=== PATIENT | female | born 1955 | race Caucasian/White ===

== ENCOUNTER 2017-08-30 12:48 | Emergency (ER) | payer OTHER, MEDICAID, SELFPAY | END 2017-08-30 14:32 | disposition home or self-care (01) | PROVIDERS: Emergency Provider Emergency Medicine; Family Provider Family Medicine; PCP Family Medicine; Visit Provider Emergency Medicine | DX: M79.645 Pain in left finger(s) (principal) | CPT/HCPCS: 73130; 99283 ==

== ENCOUNTER 2017-09-22 09:02 | Emergency (ER) | payer OTHER, MEDICAID, SELFPAY ==
--- NOTE | 2017-09-22 09:08 | ED.FEMALEGU ---
HPI - Female Genitourinary General Chief complaint: Urogenital-Female Stated complaint: 'MY BACK, MY KIDNEYS, URINARY TRACT INFECTION' Time Seen by Provider: 09/22/17 09:06 Source: patient Mode of arrival: ambulatory Limitations: no limitations History of Present Illness HPI Narrative: 62-year-old female here for evaluation of urinary symptoms for the past 4 days. Patient states that on Thursday of last week she started having pain with urination. She states that she has had lower back pain for the past couple days. States that she has had some blood on my pad and is unsure whether not this is vaginal bleeding or from her urethra however she suspects it is from her urethra. She states she no longer has menstrual cycles. She states that she has had urinary tract infections in the past. No fevers. No nausea vomiting. Patient is on anticoagulation for a prosthetic heart valve. Related Data Home Medications Medication Instructions Recorded Confirmed aspirin 81 mg PO QDAY #0 04/24/17 cholecalciferol (vitamin D3) 1,000 unit PO QDAY #0 04/24/17 [Vitamin D3] loratadine [Claritin Liqui-Gel] 10 mg PO QDAY #0 04/24/17 warfarin [Coumadin] 3 mg PO WEFR 09/22/17 09/22/17 Previous Rx's Medication Instructions Recorded citalopram 40 mg PO QDAY #30 06/26/17 furosemide 80 mg PO QDAY #30 tab 06/26/17 gabapentin [Neurontin] 1,200 mg PO BID #180 cap 06/26/17 omeprazole 20 mg PO HS #30 cap 06/26/17 potassium chloride [Klor-Con M20] 20 meq PO AMCC #30 tab 06/26/17 simvastatin 40 mg PO HS #30 tab 06/26/17 warfarin 6 mg PO QDAY #34 tab 06/26/17 diclofenac sodium [Voltaren] 1 tyrone TOPICAL Q8H #100 gm 07/13/17 nicotine [Nicoderm CQ] 14 mg TD QAM #30 patch 07/13/17 levothyroxine [Synthroid] 50 mcg PO QAM #90 tab 07/16/17 diph,pertuss(acel),tet vac(PF) 0.5 ml IM X1 #1 dose 07/22/17 [Adacel(Tdap Adolesn/Adult)(PF)] Disabled Parking Permit ea #1 07/31/17 metronidazole [Metrogel Vaginal] 1 appl VAGINAL HS 5 Days #0 gm 08/12/17 alprazolam 1 mg PO HS #30 tab 08/27/17 oxycodone-acetaminophen 1 tab PO BID #60 tab 08/27/17 dbjzjhxlkz-mhvycmjbhprrr-nrxdfqln 1 tab PO SEE INSTRUCTIONS PRN #20 09/11/17 50 mg-325 mg-40 mg tablet tab buspirone 15 mg tablet 7.5 mg PO BID #60 tab 09/17/17 cephalexin 500 mg PO Q12H 7 Days #14 cap 09/22/17 ondansetron 4 mg PO Q6H PRN #10 tab 09/22/17 Allergies Allergy/AdvReac Type Severity Reaction Status Date / Time adhesive tape [ADHESIVE TAPE] Allergy Unknown RASH Unverified 08/19/17 12:49 clindamycin [CLINDAMYCIN] Allergy Unknown RASH Unverified 08/19/17 12:49 Penicillins [PENICILLINS] Allergy Unknown RASH Unverified 08/19/17 12:49 phytonadione (vitamin K1) Allergy Unknown RASH Unverified 08/19/17 12:49 [PHYTONADIONE (VITAMIN K1)] prochlorperazine Allergy Unknown AKATHISIA Unverified 08/19/17 12:49 [PROCHLORPERAZINE] morphine [MORPHINE] AdvReac Unknown NAUSEA Unverified 08/19/17 12:49 VOMITING Review of Systems Constitutional Denies chills, Denies fever(s), Denies lethargy and Denies weakness Cardiovascular Denies chest pain, Denies irregular heart rhythm, Denies lightheadedness, Denies palpitations, Denies dyspnea, Denies dyspnea on exertion and Denies orthopnea Respiratory Denies cough, Denies dyspnea, Denies dyspnea on exertion and Denies wheezing Gastrointestinal Comments: Lower abdominal pain Genitourinary Reports hematuria, Reports urinary frequency, Reports difficulty voiding, Reports post void dribbling, Denies genital lesions, Denies pelvic pain, Denies flank pain, Denies urinary incontinence, Reports urinary hesitancy and Reports urinary urgency Musculoskeletal Comments: bilateral lower back pain Integumentary/Breasts Denies pruritus, Denies erythema, Denies rash and Denies wounds Neurologic Denies weakness Endocrine Denies palpitations Hematologic/Lymphatic Comments: on anticoagulation Allergic/Immunologic Denies urticaria and Denies wheezing PMFSH Past Medical History Medical history: Reports asthma, CHF, fibromyalgia, GERD, TIA, valvular heart disease and other ( hypertension, depression) Surgical history: Reports heart valve replacement and hysterectomy Family history: Reports no significant family history Exam Const General: cooperative and well developed Nutritional Appearance: well nourished Orientation: alert, awake, oriented x3 and not confused Resp Effort & Inspection: normal respiratory effort, able to speak in complete sentences, no respiratory distress and no use of accessory muscles Auscultation: clear to auscultation bilaterally, no rales, no rhonchi and no wheezes Cardio Rate: regular rate Rhythm: regular rhythm Heart Sounds: no click, no gallops, no murmurs and no rubs Pulses: normal peripheral pulses GI Other: bilateral lower abdominal pain without rebound or guarding Back/Spine/Pelvis Other: bilateral CVA tender Skin General: no rashes or lesions noted, No jaundice and No petechiae Neuro General: alert, oriented x3, gait normal and no focal motor deficits Cranial Nerves: CN's II-XI intact bilaterally Speech: speech normal Motor: strength 5/5 throughout Sensory Exam: no sensory deficits noted Extrem General: full ROM, no clubbing, cyanosis or edema, no pedal edema and no calf tenderness MDM - Female Genitourinary MDM Narrative Medical decision making narrative: patient is afebrile. Nontoxic appearing. Has a benign abdominal exam. Of previous renal functions show normal GFR. Bedside bladder scanner shows a urine volume of 42 cc. Patient is having dysuria, hematuria, and lower back pain. No vomiting. Patient states that she feels like she cannot give us a urinalysis. I feel that secondary to her history and her physical exam and her symptoms that a urinary tract infection is most likely. With lower back pain this could represent an early pyelonephritis. Discussed all this with the patient. Will send home with antibiotics and Pyridium. Will also give a prescription for Zofran. She was given return precautions. She expressed understanding and agreement with plan Course Orders Ordered: ED Orders 09/22/17 09:21 Urinalysis and Microscopic Stat Urine Culture Stat Last Vital Signs Temp 98.5 F 09/22/17 09:50 Pulse 65 09/22/17 09:50 Resp 13 09/22/17 09:50 BP 158/66 H 09/22/17 09:50 Pulse Ox 98 09/22/17 09:50 Discharge Plan Departure Patient Disposition: Home, Self-Care Clinical Impression: Urinary tract infection Instructions: Bladder Infection (Alternative Therapy), DI for Urinary Tract Infection (UTI) Activity Restrictions/Additional Instructions: Take all of your medications as directed. Increase your fluid intake. Call your primary care provider for a follow up. Return to the ER for any new or worsening symptoms. Prescriptions: New cephalexin 500 mg capsule 500 mg PO Q12H 7 Days Qty: 14 RF: 0 ondansetron 4 mg tablet,disintegrating 4 mg PO Q6H PRN (Reason: nausea and vomiting) Qty: 10 RF: 0 No Action aspirin 81 MG tablet,chewable 81 mg PO QDAY Qty: 0 RF: 0 cholecalciferol (vitamin D3) [Vitamin D3] 1,000 UNIT tablet 1,000 unit PO QDAY Qty: 0 RF: 0 loratadine [Claritin Liqui-Gel] 10 MG capsule 10 mg PO QDAY Qty: 0 RF: 0 citalopram 40 MG tablet 40 mg PO QDAY Qty: 30 RF: 2 gabapentin [Neurontin] 400 MG capsule 1,200 mg PO BID Qty: 180 RF: 2 simvastatin 40 MG tablet 40 mg PO HS Qty: 30 RF: 2 warfarin 6 MG tablet 6 mg PO QDAY Qty: 34 RF: 2 potassium chloride [Klor-Con M20] 20 MEQ tablet,ER particles/crystals 20 meq PO AMCC Qty: 30 RF: 2 furosemide 80 MG tablet 80 mg PO QDAY Qty: 30 RF: 2 omeprazole 20 MG capsule,delayed release(DR/EC) 20 mg PO HS Qty: 30 RF: 2 diclofenac sodium [Voltaren] 1 % gel 1 tyrone Topical Q8H Qty: 100 RF: 2 nicotine [Nicoderm CQ] 14 MG patch 24 hour 14 mg TD QAM Qty: 30 RF: 2 levothyroxine [Synthroid] 50 MCG tablet 50 mcg PO QAM Qty: 90 RF: 0 diph,pertuss(acel),tet vac(PF) [Adacel(Tdap Adolesn/Adult)(PF)] 0.5 ML suspension 0.5 ml IM X1 Qty: 1 RF: 0 Disabled Parking Permit Qty: 1 RF: 0 metronidazole [Metrogel Vaginal] 0.75 % gel 1 appl Vaginal HS 5 Days Qty: 0 RF: 0 alprazolam 1 MG tablet 1 mg PO HS Qty: 30 RF: 0 oxycodone-acetaminophen 7.5 MG/325 MG tablet 1 tab PO BID Qty: 60 RF: 0 dmnsjqmsya-xcfpuechrhdls-eizm 50-325-40 mg tablet 1 tab PO SEE INSTRUCTIONS PRN (Reason: headaches) Qty: 20 RF: 0 buspirone 15 mg tablet 7.5 mg PO BID Qty: 60 RF: 0 warfarin [Coumadin] 3 MG tablet 3 mg PO WEFR RF: 0
[2017-09-22 09:16] VITALS: BP 158/66; PULSE 65; RESP 13; TEMP 36.9; O2SAT 98
[2017-09-22 09:50] VITALS: BP 158/66; PULSE 65; RESP 13; TEMP 36.9; O2SAT 98
[2017-09-22 10:17] VITALS: BP 160/90; PULSE 67; RESP 18; O2SAT 94
== END 2017-09-22 10:17 | disposition home or self-care (01) ==
PROVIDERS: Emergency Provider Emergency Medicine; Family Provider Family Medicine; PCP Family Medicine
DX: N39.0 Urinary tract infection, site not specified (principal)
CPT/HCPCS: 51798; 99283

== ENCOUNTER 2017-10-22 15:24 | Emergency (ER) | payer OTHER, MEDICAID, SELFPAY ==
[2017-10-22 15:28] VITALS: BP 100/57; PULSE 50; RESP 20; TEMP 36.2; O2SAT 99; BMI 26.4
[2017-10-22 16:23] LABS: RBC Urine 5-10/HPF (0-5/HPF); Squamous Epithelial Cell Urine 1-5 /HPF; WBC Urine 1-5/HPF (0-5/HPF)
[2017-10-22 16:24] LABS: Bacteria Urine Occasional (0-1)
[2017-10-22 16:47] LABS: Alanine Aminotransferase 37 IU/L (9-52); Albumin 4.1 g/dL (3.5-5.0); Albumin Globulin Ratio 1.2 (1.0-2.8); Alkaline Phosphatase 90 U/L (38-126); Aspartate Aminotransferase 35 IU/L (14-36); BUN Creatinine Ratio 23.8 (6-22); Bilirubin Total 0.6 mg/dL (0.2-1.3); Blood Urea Nitrogen 19 mg/dL (7-17); Calcium 8.8 mg/dL (8.4-10.2); Carbon Dioxide 25 mmol/L (22-32); Chloride 107 mmol/L (98-107); Creatine Kinase 107 U/L (30-135); Estimated Glomerular Filt Rate > 60.0 mL/min (>60); Globulin 3.4 g/dL (1.7-4.1); Glucose 81 mg/dL (80-110); HEMOLYSIS < 15 (0-50); Lipase 87 U/L (23-300); Potassium 4.7 mmol/L (3.4-5.1); Sodium 139 mmol/L (137-145); Total Protein 7.5 g/dL (6.3-8.2)
[2017-10-22 16:48] LABS: Add Manual Diff / Slide Review NO; Basophils Percent Auto 0.9 % (0-2); Eosinophils Percent Auto 0.4 % (2-4); Hematocrit 37.3 % (36-46); Hemoglobin 12.4 g/dL (12.0-16.0); Lymphocytes Percent Auto 20.2 % (25-40); Mean Corpuscular HGB Conc 33.2 % (30-36); Mean Corpuscular Volume 87.3 fL (80-100); Monocytes Percent Auto 7.8 % (3-14); Neutrophils Absolute Auto 5500 /uL (3000-5900); Neutrophils Percent Auto 70.7 % (50-75); Platelet Count 207 X10^3/uL (150-400); Red Blood Cell Count 4.28 X10^6/uL (4.0-5.2); Red Cell Distribution Width 14.1 % (11.6-14.8); White Blood Cell Count 7.8 X10^3/uL (4.5-11.0)
[2017-10-22 16:49] LABS: INR 2.2 (0.9-1.3); Prothrombin Time 23.4 SECONDS (10.1-12.7)
[2017-10-22 16:51] LABS: PTT Partial Thromboplastin Tim 46 SECONDS (26.4-36.2)
[2017-10-22 16:52] VITALS: BP 106/44; PULSE 42; O2SAT 97
[2017-10-22 17:03] LABS: CKMB % Relative Index 2.2 % (1.5-5.0)
[2017-10-22 17:08] LABS: Troponin I < 0.012 ng/mL (0.01-0.034)
[2017-10-22 17:11] VITALS: BP 113/58; PULSE 71; RESP 12; O2SAT 97
--- NOTE | 2017-10-22 17:12 | DI.CT.S_ITS ---
PROCEDURE: CT ABDOMEN PELVIS W CON INDICATIONS: RLQ and RUQ pain TECHNIQUE: After the administration of intravenous contrast, 5 mm thick sections acquired from the diaphragm to the symphysis. 5 mm coronal and sagittal reformats were acquired. For radiation dose reduction, the following was used: automated exposure control, adjustment of mA and/or kV according to patient size. COMPARISON: None. FINDINGS: Image quality: Excellent. ABDOMEN: Lung bases: Scattered scarring/atelectasis. Heart is enlarged. Solid organs: Liver is normal in size and enhancement. Gallbladder negative. Biliary system is non dilated. Pancreas enhances normally. Spleen is normal in size and enhancement. No adrenal nodules. Bilateral renal cortical scarring. No hydronephrosis.. Peritoneum and bowel: Bowel loops demonstrate normal wall thickness and caliber. No free fluid or air. The appendix appears normal. The rectum is decompressed otherwise unremarkable. Scattered colonic diverticula. No evidence of acute diverticulitis Nodes and vessels: No retroperitoneal or mesenteric adenopathy by size criteria. Aorta and inferior vena cava are normal in size. There are scattered atheromatous plaques Miscellaneous: No ventral hernias. PELVIS: Genitourinary: Bladder wall thickness is normal. Miscellaneous: No inguinal hernias or adenopathy. Bones: No suspicious bony lesions. No vertebral body compression fractures. IMPRESSION: Overall, no acute abnormality. Normal appendix. Unremarkable appearance of the gallbladder. Incidental colonic diverticulosis. Cardiomegaly. Dictated by: Aldo Dowd M.D. on 10/22/2017 at 18:02 Approved by: Aldo Dowd M.D. on 10/22/2017 at 18:06
[2017-10-22 18:04] VITALS: BP 122/81; PULSE 43; RESP 16; O2SAT 98
[2017-10-22] MEDS: ONDANSETRON 4 MG/2 ML INJ IV (18:05)
[2017-10-22] MEDS: HYDROMORPHONE 0.5 MG INJ IV (18:05)
--- NOTE | 2017-10-22 18:54 | ED_ITS ---
HPI - Recheck/Abnormal Lab/Rx General Chief Complaint: Recheck/Abnormal Lab/Rx Stated Complaint: INR LEVEL ELEVATED,DR SENT OVER Time Seen by Provider: 10/22/17 16:47 Source: patient Mode of arrival: ambulatory Limitations: no limitations History of Present Illness HPI narrative: Patient is a 62-year-old female presenting with all abdominal pain. She actually says she needs her INR recheck date with 7 a couple days ago. She is now also having right upper and right lower quadrant pain. An overall just feeling weak and lethargic. She says she chronically has this abdominal pain is been off and on for a number of years however it is worse today. She denies any fever nausea vomiting or diarrhea. Related Data Home Medications Medication Instructions Recorded Confirmed aspirin 81 mg PO QDAY #0 04/24/17 10/22/17 cholecalciferol (vitamin D3) 1,000 unit PO QDAY #0 04/24/17 10/22/17 [Vitamin D3] buspirone 7.5 - 15 mg PO BID 09/22/17 10/22/17 grlypyiikg-scmbrzybpkgly-ttuf 1 - 2 tab PO Q4H PRN 09/22/17 10/22/17 warfarin [Coumadin] 3 mg PO WEFR 09/22/17 10/22/17 Previous Rx's Medication Instructions Recorded furosemide 80 mg PO QDAY #30 tab 06/26/17 potassium chloride [Klor-Con M20] 20 meq PO AMCC #30 tab 06/26/17 warfarin 6 mg PO QDAY #34 tab 06/26/17 diclofenac sodium [Voltaren] 1 tyrone TOPICAL Q8H #100 gm 07/13/17 nicotine [Nicoderm CQ] 14 mg TD QAM #30 patch 07/13/17 levothyroxine [Synthroid] 50 mcg PO QAM #90 tab 07/16/17 ondansetron 4 mg PO Q6H PRN #10 tab 09/22/17 alprazolam 1 mg tablet 1 mg PO HS #30 tab 09/28/17 oxycodone-acetaminophen 7.5 mg-325 1 tab PO BID #60 tab 09/29/17 mg tablet citalopram 40 mg tablet 40 mg PO QDAY #30 10/21/17 gabapentin 400 mg capsule 1,200 mg PO BID #180 cap 10/21/17 omeprazole 20 mg capsule,delayed 20 mg PO HS #30 cap 10/21/17 release simvastatin 40 mg tablet 40 mg PO HS #30 tab 10/21/17 loratadine 10 mg tablet 10 mg PO DAILY #30 tab 10/22/17 Allergies Allergy/AdvReac Type Severity Reaction Status Date / Time adhesive tape [ADHESIVE TAPE] Allergy Unknown RASH Verified 10/21/17 14:18 clindamycin [CLINDAMYCIN] Allergy Unknown RASH Verified 10/21/17 14:18 Penicillins [PENICILLINS] Allergy Unknown RASH Verified 10/21/17 14:18 phytonadione (vitamin K1) Allergy Unknown RASH Verified 10/21/17 14:18 [PHYTONADIONE (VITAMIN K1)] prochlorperazine Allergy Unknown AKATHISIA Verified 10/21/17 14:18 [PROCHLORPERAZINE] morphine [MORPHINE] AdvReac Unknown NAUSEA Verified 10/21/17 14:18 VOMITING Review of Systems Review of Systems All systems reviewed & are unremarkable except as noted in HPI and below Constitutional Reports body ache(s), Reports fatigue, Denies fever(s), Denies frequent falls and Denies headache(s) ENT Ears, Nose, Mouth, and Throat: Denies headache(s) Cardiovascular Denies chest pain, Denies irregular heart rhythm, Denies lightheadedness, Denies palpitations, Denies dyspnea, Denies dyspnea on exertion and Denies orthopnea Respiratory Denies cough, Denies dyspnea, Denies dyspnea on exertion and Denies wheezing Gastrointestinal Gastrointestinal: Reports system reviewed and no additional complaints, except as docu Genitourinary Denies hematuria, Denies flank pain, Denies urinary incontinence and Denies urinary urgency Integumentary/Breasts Denies pruritus, Denies erythema, Denies rash and Denies wounds Neurologic Denies frequent falls and Denies headache(s) Endocrine Reports fatigue and Denies palpitations Allergic/Immunologic Denies wheezing PFSH Surgical History Status post hernia repair Status post hysterectomy Family History Brother Age: 56 RA (rheumatoid arthritis) COPD (chronic obstructive pulmonary disease) Mother Breast cancer Social History Smoking Status: Current some day smoker Exam Initial Vital Signs Initial Vital Signs: Vital Signs Temperature 97.1 F L 10/22/17 15:28 Pulse Rate 50 L 10/22/17 15:28 Respiratory Rate 20 10/22/17 15:28 Blood Pressure 100/57 L 10/22/17 15:28 Pulse Oximetry 99 10/22/17 15:28 Const General: cooperative and well developed Nutritional Appearance: well nourished Orientation: alert, awake, oriented x3 and not confused Chest Chest: normal inspection of the chest Resp Effort & Inspection: normal respiratory effort, able to speak in complete sentences, no respiratory distress and no use of accessory muscles Auscultation: clear to auscultation bilaterally, no rales, no rhonchi and no wheezes Cardio Rate: regular rate Rhythm: regular rhythm Heart Sounds: no click, no gallops, no murmurs and no rubs Pulses: normal peripheral pulses GI Palpation: soft, No guarding, tender (Right lower quadrant and right upper quadrant negative Patel sign no guarding no rebound) and No ascites General: No CVA tenderness Skin General: no rashes or lesions noted, No jaundice and No petechiae Neuro General: alert, oriented x3, gait normal and no focal motor deficits Speech: speech normal Course Orders Ordered: ED Orders 10/22/17 15:54 Urine Microscopic Stat 10/22/17 16:32 Complete Blood Count AUTO DIFF Stat Comprehensive Metabolic Panel Stat Lipase Stat Partial Thromboplastin Time Stat Prothrombin Time INR Stat Troponin with CK Cardiac Panel Stat EKG-12 Lead Stat 10/22/17 17:12 CT abdomen pelvis w con Stat Lactate (Lactic Acid) Stat Discontinued Medications Hydromorphone HCl (Dilaudid) 0.5 mg IV NOW ONE Stop: 10/22/17 18:05 Last Admin: 10/22/17 18:05 Dose: 0.5 mg Ondansetron HCl (Zofran) 4 mg IV NOW ONE Stop: 10/22/17 18:05 Last Admin: 10/22/17 18:05 Dose: 4 mg Vital Signs - 8 hr 10/22/17 15:28 10/22/17 16:52 10/22/17 17:11 Temperature 97.1 F L Pulse Rate 50 L 42 L 71 Respiratory Rate 20 12 Blood Pressure 100/57 L Blood Pressure [Left Arm] 106/44 L 113/58 L Pulse Oximetry 99 97 97 10/22/17 18:04 Temperature Pulse Rate 43 L Respiratory Rate 16 Blood Pressure Blood Pressure [Left Arm] 122/81 H Pulse Oximetry 98 MDM - Recheck/Abnormal Lab/Rx Lab Data Attestation: I reviewed the patient's lab results. Result diagrams: 10/22/17 16:32 10/22/17 16:32 Lab Results 10/22/17 10/22/17 10/22/17 Range/Units 15:54 16:32 16:32 WBC 7.8 (4.5-11.0) X10^3/uL RBC 4.28 (4.0-5.2) X10^6/uL Hgb 12.4 (12.0-16.0) g/dL Hct 37.3 (36-46) % MCV 87.3 (80-100) fL MCH 29.0 (26-34) PG MCHC 33.2 (30-36) % RDW 14.1 (11.6-14.8) % Plt Count 207 (150-400) X10^3/uL Neut % (Auto) 70.7 (50-75) % Lymph % (Auto) 20.2 L (25-40) % [place] % (Auto) 7.8 (3-14) % Eos % (Auto) 0.4 L (2-4) % Baso % (Auto) 0.9 (0-2) % Neut # (Auto) 5500 (4393-2758) /uL PT 23.4 H (10.1-12.7) SECONDS INR 2.2 H (0.9-1.3) APTT 46 H (26.4-36.2) SECONDS Sodium (137-145) mmol/L Potassium (3.4-5.1) mmol/L Chloride (98-107) mmol/L Carbon Dioxide (22-32) mmol/L BUN (7-17) mg/dL Creatinine (0.52-1.04) mg/dL Estimated GFR (>60) mL/min BUN/Creatinine Ratio (6-22) Glucose (80-110) mg/dL Calcium (8.4-10.2) mg/dL Total Bilirubin (0.2-1.3) mg/dL AST (14-36) IU/L ALT (9-52) IU/L Alkaline Phosphatase (38-126) U/L Total Creatine Kinase (30-135) U/L CK-MB (CK-2) (<2.37) ng/mL CK-MB (CK-2) Rel Index (1.5-5.0) % Troponin I (0.01-0.034) ng/mL Total Protein (6.3-8.2) g/dL Albumin (3.5-5.0) g/dL Globulin (1.7-4.1) g/dL Albumin/Globulin Ratio (1.0-2.8) Lipase (23-300) U/L Urine RBC 5-10/hpf H (0-5/HPF) Urine WBC 1-5/hpf (0-5/HPF) Ur Squamous Epith Cells 1-5 /hpf Urine Bacteria Occasional (0-1) (None) Ur Culture Indicated? Not Reportable Micro UA Comment Not Reportable 10/22/17 Range/Units 16:32 WBC (4.5-11.0) X10^3/uL RBC (4.0-5.2) X10^6/uL Hgb (12.0-16.0) g/dL Hct (36-46) % MCV (80-100) fL MCH (26-34) PG MCHC (30-36) % RDW (11.6-14.8) % Plt Count (150-400) X10^3/uL Neut % (Auto) (50-75) % Lymph % (Auto) (25-40) % [place] % (Auto) (3-14) % Eos % (Auto) (2-4) % Baso % (Auto) (0-2) % Neut # (Auto) (5647-9641) /uL PT (10.1-12.7) SECONDS INR (0.9-1.3) APTT (26.4-36.2) SECONDS Sodium 139 (137-145) mmol/L Potassium 4.7 (3.4-5.1) mmol/L Chloride 107 (98-107) mmol/L Carbon Dioxide 25 (22-32) mmol/L BUN 19 H (7-17) mg/dL Creatinine 0.80 (0.52-1.04) mg/dL Estimated GFR > 60.0 (>60) mL/min BUN/Creatinine Ratio 23.8 H (6-22) Glucose 81 (80-110) mg/dL Calcium 8.8 (8.4-10.2) mg/dL Total Bilirubin 0.6 (0.2-1.3) mg/dL AST 35 (14-36) IU/L ALT 37 (9-52) IU/L Alkaline Phosphatase 90 (38-126) U/L Total Creatine Kinase 107 (30-135) U/L CK-MB (CK-2) 2.40 H (<2.37) ng/mL CK-MB (CK-2) Rel Index 2.2 (1.5-5.0) % Troponin I < 0.012 (0.01-0.034) ng/mL Total Protein 7.5 (6.3-8.2) g/dL Albumin 4.1 (3.5-5.0) g/dL Globulin 3.4 (1.7-4.1) g/dL Albumin/Globulin Ratio 1.2 (1.0-2.8) Lipase 87 (23-300) U/L Urine RBC (0-5/HPF) Urine WBC (0-5/HPF) Ur Squamous Epith Cells Urine Bacteria (None) Ur Culture Indicated? Micro UA Comment Imaging Data CT scan - abdomen: Radiologist's impression: PROCEDURE: CT ABDOMEN PELVIS W CON INDICATIONS: RLQ and RUQ pain TECHNIQUE: After the administration of intravenous contrast, 5 mm thick sections acquired from the diaphragm to the symphysis. 5 mm coronal and sagittal reformats were acquired. For radiation dose reduction, the following was used: automated exposure control, adjustment of mA and/or kV according to patient size. COMPARISON: None. FINDINGS: Image quality: Excellent. ABDOMEN: Lung bases: Scattered scarring/atelectasis. Heart is enlarged. Solid organs: Liver is normal in size and enhancement. Gallbladder negative. Biliary system is non dilated. Pancreas enhances normally. Spleen is normal in size and enhancement. No adrenal nodules. Bilateral renal cortical scarring. No hydronephrosis.. Peritoneum and bowel: Bowel loops demonstrate normal wall thickness and caliber. No free fluid or air. The appendix appears normal. The rectum is decompressed otherwise unremarkable. Scattered colonic diverticula. No evidence of acute diverticulitis Nodes and vessels: No retroperitoneal or mesenteric adenopathy by size criteria. Aorta and inferior vena cava are normal in size. There are scattered atheromatous plaques Miscellaneous: No ventral hernias. PELVIS: Genitourinary: Bladder wall thickness is normal. Miscellaneous: No inguinal hernias or adenopathy. Bones: No suspicious bony lesions. No vertebral body compression fractures. IMPRESSION: Overall, no acute abnormality. Normal appendix. Unremarkable appearance of the gallbladder. Incidental colonic diverticulosis. Cardiomegaly. Dictated by: Aldo Dowd M.D. on 10/22/2017 at 18:02 ECG Data Attestation: I personally reviewed and interpreted this ECG as follows: Prior ECG tracings: available for review Interpretation: Sinus rhythm rate 39 bradycardic normal intervals, similar to previous MDM Narrative Medical decision making narrative: Patient states that her normal heart rate is in the 40s. This is not uncommon for her. She also has been having chronic ongoing abdominal pain which is to be worse today of. Her INR is much improved from previous an herbal other blood work is within normal limits. She appears nontoxic in no sign of infection. The patient feels better and able to go home after Dilaudid. Discharge Plan Departure Patient Disposition: Home, Self-Care Clinical Impression: Abdominal pain Discharge Date/Time: 10/22/17 18:55 Interventions: ED Discharge Assessment Last Done: 10/22/17 18:48 Instructions: Acute Abdominal Pain Activity Restrictions/Additional Instructions: *You have been diagnosed with abdominal pain *What to do: Blood work and CT today were at the you're baseline and CT scan was negative for any acute findings. *Continue to take medications as directed *Follow up with your primary care provider in 2-3 days *Return to ER if you should have any new, worsening or concerning symptoms Prescriptions: No Action citalopram 40 mg tablet 40 mg PO QDAY Qty: 30 RF: 2 gabapentin [Neurontin] 400 mg capsule 1,200 mg PO BID Qty: 180 RF: 2 omeprazole 20 mg capsule,delayed release(DR/EC) 20 mg PO HS Qty: 30 RF: 2 simvastatin 40 mg tablet 40 mg PO HS Qty: 30 RF: 2 aspirin 81 MG tablet,chewable 81 mg PO QDAY Qty: 0 RF: 0 cholecalciferol (vitamin D3) [Vitamin D3] 1,000 UNIT tablet 1,000 unit PO QDAY Qty: 0 RF: 0 warfarin 6 MG tablet 6 mg PO QDAY Qty: 34 RF: 2 potassium chloride [Klor-Con M20] 20 MEQ tablet,ER particles/crystals 20 meq PO AMCC Qty: 30 RF: 2 furosemide 80 MG tablet 80 mg PO QDAY Qty: 30 RF: 2 diclofenac sodium [Voltaren] 1 % gel 1 tyrone Topical Q8H Qty: 100 RF: 2 nicotine [Nicoderm CQ] 14 MG patch 24 hour 14 mg TD QAM Qty: 30 RF: 2 levothyroxine [Synthroid] 50 MCG tablet 50 mcg PO QAM Qty: 90 RF: 0 alprazolam 1 mg tablet 1 mg PO HS Qty: 30 RF: 0 oxycodone-acetaminophen 7.5-325 mg tablet 1 tab PO BID Qty: 60 RF: 0 loratadine 10 mg tablet 10 mg PO DAILY Qty: 30 RF: 3 ondansetron 4 mg tablet,disintegrating 4 mg PO Q6H PRN (Reason: nausea and vomiting) Qty: 10 RF: 0 warfarin [Coumadin] 3 MG tablet 3 mg PO WEFR RF: 0 eymgrlyfqj-qbkldkjwhtbgu-ywuu 50-325-40 mg tablet 1 - 2 tab PO Q4H PRN (Reason: headaches) RF: 0 buspirone 15 mg tablet 7.5 - 15 mg PO BID RF: 0 Referrals: Nancy Ba DO [Primary Care Provider] -
== END 2017-10-22 18:55 | disposition home or self-care (01) ==
PROVIDERS: Emergency Provider Emergency Medicine; Family Provider Family Medicine; PCP Family Medicine
DX: R10.9 Unspecified abdominal pain (principal)
CPT/HCPCS: 36591; 74177; 80053; 81003; 81015; 82550; 82553; 83690; 84484; 85025; 85610; 85730; 93005; 96374; 96375; 99283; 99285; J1170; J2405

== ENCOUNTER 2017-11-02 15:26 | Emergency (ER) | payer OTHER, MEDICAID, SELFPAY ==
[2017-11-02 15:31] VITALS: BP 131/89; PULSE 62; RESP 16; TEMP 36.9; O2SAT 99; BMI 28.3
--- NOTE | 2017-11-02 15:46 | PC.NURSE ---
emotional with tears, but cooperative with care.
--- NOTE | 2017-11-02 16:50 | PC.NURSE ---
Addendum entered by Dilia Garcia R.N. 11/02/17 16:53: Pt denies intent to harm self or others. Denies self harm today. Original Note: Pt states her family members will not speak with her. She has been having marital problems and her three people that she usually talks to, will not speak with her. She states I just need someone to talk to. She was arrested last week and was unable to pickler helper her levothyroxine and citalopram. She has been without these medications for a week. Provider notified.
[2017-11-02 16:57] LABS: Prothrombin Time 66.6 SECONDS (10.1-12.7)
[2017-11-02 16:59] LABS: INR 6.2 (0.9-1.3)
--- NOTE | 2017-11-02 17:21 | PC.NURSE ---
pt requesting medication for anxiety, notified, lights dimmed per pt request, informed of reason for wait, blanket and position of comfort provided
[2017-11-02 17:26] LABS: Thyroid Stimulating Hormone 2.93 uIU/mL (0.47-4.68)
--- NOTE | 2017-11-02 18:31 | ED_ITS ---
HPI - Anxiety <TALHA Albert - Last Filed: 11/02/17 22:10> General Chief Complaint: Anxiety Stated Complaint: WOULD LIKE TO TALK TO SOMEONE,ROUGH DAY Time Seen by Provider: 11/02/17 16:08 History of Present Illness HPI narrative: 62-year-old female here for complaint of feeling anxious and needing someone to talk to. She states that she has had a rough week where she was incarcerated and released and is having difficulties with her family. She states that she does not have a lot of people talk to at the current time frame due to recent events. She denies any suicidal or homicidal ideation. She does report that she has been recently established with a counselor. She has no physical complaints although she does state that she would like to have her TSH and her INR checked as she has had had some irregularities with her medication take over this past week. MD complaint: anxiety Related Data Home Medications Medication Instructions Recorded Confirmed aspirin 81 mg PO QDAY #0 04/24/17 11/02/17 buspirone 7.5 mg PO BID 09/22/17 11/02/17 semfmjjylb-tiloxjymawjxu-krnq 1 - 2 tab PO Q4H PRN 09/22/17 11/02/17 warfarin [Coumadin] 3 mg PO WEFR 09/22/17 11/02/17 Previous Rx's Medication Instructions Recorded diclofenac sodium [Voltaren] 1 tyrone TOPICAL Q8H #100 gm 07/13/17 nicotine [Nicoderm CQ] 14 mg TD QAM #30 patch 07/13/17 ondansetron 4 mg PO Q6H PRN #10 tab 09/22/17 loratadine 10 mg tablet 10 mg PO DAILY #30 tab 10/22/17 citalopram 40 mg tablet 40 mg PO QDAY #30 10/23/17 furosemide 80 mg PO QDAY #30 tab 10/23/17 gabapentin 400 mg capsule 1,200 mg PO BID #180 cap 10/23/17 levothyroxine [Synthroid] 50 mcg PO QAM #90 tab 10/23/17 omeprazole 20 mg capsule,delayed 20 mg PO HS #30 cap 10/23/17 release potassium chloride [Klor-Con M20] 20 meq PO AMCC #30 tab 10/23/17 simvastatin 40 mg tablet 40 mg PO HS #30 tab 10/23/17 alprazolam 1 mg tablet 1 mg PO HS #30 tab 10/28/17 oxycodone-acetaminophen 7.5 mg-325 1 tab PO BID #60 tab 10/28/17 mg tablet warfarin 6 mg PO QDAY #34 tab 10/28/17 albuterol sulfate HFA 90 2 puff INHALATION QID PRN #8.5 gram 11/02/17 mcg/actuation aerosol inhaler Allergies Allergy/AdvReac Type Severity Reaction Status Date / Time adhesive tape [ADHESIVE TAPE] Allergy Unknown RASH Verified 11/03/17 17:11 clindamycin [CLINDAMYCIN] Allergy Unknown RASH Verified 11/03/17 17:11 Penicillins [PENICILLINS] Allergy Unknown RASH Verified 11/03/17 17:11 phytonadione (vitamin K1) Allergy Unknown RASH Verified 11/03/17 17:11 [PHYTONADIONE (VITAMIN K1)] prochlorperazine Allergy Unknown AKATHISIA Verified 11/03/17 17:11 [PROCHLORPERAZINE] morphine [MORPHINE] AdvReac Unknown NAUSEA Verified 11/03/17 17:11 VOMITING Review of Systems <TALHA Albert - Last Filed: 11/02/17 22:10> Constitutional Denies chills, Denies fever(s), Denies lethargy and Denies weakness Eyes Denies change in vision, Denies eye discharge, Denies irritation and Denies loss of vision ENT Ears, Nose, Mouth, and Throat: Denies change in voice, Denies neck pain and Denies sore throat Cardiovascular Denies chest pain, Denies irregular heart rhythm, Denies lightheadedness, Denies palpitations, Denies dyspnea, Denies dyspnea on exertion and Denies orthopnea Respiratory Denies cough, Denies dyspnea, Denies dyspnea on exertion and Denies wheezing Gastrointestinal Gastrointestinal: Denies abdominal pain, Denies change in bowel habits, Denies diarrhea, Denies nausea and Denies vomiting Genitourinary Denies hematuria, Denies flank pain, Denies urinary incontinence and Denies urinary urgency Musculoskeletal Denies neck pain Integumentary/Breasts Denies pruritus, Denies erythema, Denies rash and Denies wounds Neurologic Denies loss of vision and Denies weakness Psychiatric Reports anxiety Endocrine Denies palpitations Hematologic/Lymphatic Denies easy bruising Allergic/Immunologic Denies wheezing Exam <TALHA Albert Last Filed: 11/02/17 22:10> Initial Vital Signs Initial Vital Signs: Vital Signs Temperature 98.4 F 11/02/17 15:31 Pulse Rate 62 11/02/17 15:31 Respiratory Rate 16 11/02/17 15:31 Blood Pressure 131/89 H 11/02/17 15:31 Pulse Oximetry 99 11/02/17 15:31 Const General: cooperative and well developed Nutritional Appearance: well nourished Orientation: alert, awake, oriented x3 and not confused HENNY Mouth: oral mucosae normal and moist mucous membranes Eyes Conjunctivae: conjunctivae normal Sclera: sclerae normal Pupils: PERRL EOM: EOM intact bilaterally Resp Effort & Inspection: normal respiratory effort, able to speak in complete sentences, no respiratory distress and no use of accessory muscles Auscultation: clear to auscultation bilaterally, no rales, no rhonchi and no wheezes Cardio Rate: regular rate Rhythm: regular rhythm Heart Sounds: no click, no gallops, no murmurs and no rubs Skin General: no rashes or lesions noted, No jaundice and No petechiae Psych Appearance: well kempt Speech and Movement: speech and movement normal and speech clear Mood: anxious mood Affect: sad Attitude: cooperative Thought Process: normal Thought Content: normal Judgment: judgment good <DO Alysha Thomas Last Filed: 11/04/17 20:28> Initial Vital Signs Initial Vital Signs: Vital Signs Temperature 98.4 F 11/02/17 15:31 Pulse Rate 62 11/02/17 15:31 Respiratory Rate 16 11/02/17 15:31 Blood Pressure 131/89 H 11/02/17 15:31 Pulse Oximetry 99 11/02/17 15:31 Course <TALHA Albert - Last Filed: 11/02/17 22:10> Orders Ordered: ED Orders 11/02/17 16:20 Prothrombin Time INR Stat Thyroid Stimulating Hormone Stat Vital Signs - 8 hr 11/02/17 15:31 11/02/17 18:34 Temperature 98.4 F Pulse Rate 62 68 Respiratory Rate 16 12 Blood Pressure 131/89 H Blood Pressure [Left Arm] 130/72 H Pulse Oximetry 99 98 <DO Alysha Thomas Filed: 06/27/18 20:28> Orders Ordered: ED Orders 11/02/17 16:20 Prothrombin Time INR Stat Thyroid Stimulating Hormone Stat Vital Signs - 8 hr 11/02/17 15:31 11/02/17 18:34 Temperature 98.4 F Pulse Rate 62 68 Respiratory Rate 16 12 Blood Pressure 131/89 H Blood Pressure [Left Arm] 130/72 H Pulse Oximetry 99 98 MDM - Anxiety <TALHA Albert - Last Filed: 11/02/17 22:10> Lab Data Lab Results 11/02/17 11/02/17 Range/Units 16:20 16:20 PT 66.6 H (10.1-12.7) SECONDS INR 6.2 H* (0.9-1.3) TSH 2.93 (0.47-4.68) uIU/mL MDM Narrative Medical decision making narrative: Patient has counselor established and no would recommend that she follow up with her counselor in the next few days for continued therapy. Take anxiety medications as already prescribed by primary care. INR was obtained and which resulted in 6.2 she has no complaint of pain or bleeding anywhere. She is instructed to not take her Coumadin for 2 days. She is instructed to follow up with her primary care provider in 2 days for re- evaluation of her INR. For any worsening symptoms such as abdominal pain headache vomiting with blood or dark stool she is encouraged to return to the emergency room. <Kris Ogden DO - Last Filed: 11/04/17 20:28> Lab Data Lab Results 11/02/17 11/02/17 Range/Units 16:20 16:20 PT 66.6 H (10.1-12.7) SECONDS INR 6.2 H* (0.9-1.3) TSH 2.93 (0.47-4.68) uIU/mL Discharge Plan Departure Patient Disposition: Home, Self-Care Clinical Impression: Anxiety, Elevated INR Discharge Date/Time: 11/02/17 18:38 Interventions: ED Discharge Assessment Last Done: 11/02/17 18:36 Instructions: DI for Anxiety -- Adult Activity Restrictions/Additional Instructions: Continue taking anxiety medications as prescribed. Follow up with your counselor in the next few days for further counseling. INR was elevated at 6.2 this evening. Do not taking Coumadin for 2 days follow up with her primary care provider 2 days from now to have INR redrawn. For any worsening symptoms such as vomiting with blood dark tarry stool headache or abdominal pain return to the emergency room. Prescriptions: No Action aspirin 81 MG tablet,chewable 81 mg PO QDAY Qty: 0 RF: 0 diclofenac sodium [Voltaren] 1 % gel 1 tyrone Topical Q8H Qty: 100 RF: 2 nicotine [Nicoderm CQ] 14 MG patch 24 hour 14 mg TD QAM Qty: 30 RF: 2 loratadine 10 mg tablet 10 mg PO DAILY Qty: 30 RF: 3 furosemide 80 mg tablet 80 mg PO QDAY Qty: 30 RF: 0 potassium chloride [Klor-Con M20] 20 mEq tablet,ER particles/crystals 20 meq PO AMCC Qty: 30 RF: 0 levothyroxine [Synthroid] 50 mcg tablet 50 mcg PO QAM Qty: 90 RF: 0 gabapentin [Neurontin] 400 mg capsule 1,200 mg PO BID Qty: 180 RF: 0 omeprazole 20 mg capsule,delayed release(DR/EC) 20 mg PO HS Qty: 30 RF: 0 simvastatin 40 mg tablet 40 mg PO HS Qty: 30 RF: 2 citalopram 40 mg tablet 40 mg PO QDAY Qty: 30 RF: 0 warfarin 6 mg tablet 6 mg PO QDAY Qty: 34 RF: 0 alprazolam 1 mg tablet 1 mg PO HS Qty: 30 RF: 0 oxycodone-acetaminophen 7.5-325 mg tablet 1 tab PO BID Qty: 60 RF: 0 albuterol sulfate [Ventolin HFA] 90 mcg/actuation HFA aerosol inhaler 2 puff INHALATION QID PRN (Reason: shortness of breath or wheezing) Qty: 8.5 RF: 1 ondansetron 4 mg tablet,disintegrating 4 mg PO Q6H PRN (Reason: nausea and vomiting) Qty: 10 RF: 0 warfarin [Coumadin] 3 MG tablet 3 mg PO WEFR RF: 0 qxmkzzujim-qdxveyjiffqck-gvnj 50-325-40 mg tablet 1 - 2 tab PO Q4H PRN (Reason: headaches) RF: 0 buspirone 15 mg tablet 7.5 mg PO BID RF: 0 Referrals: Mejia,Nancy, DO [Primary Care Provider] -
[2017-11-02 18:34] VITALS: BP 130/72; PULSE 68; RESP 12; O2SAT 98
== END 2017-11-02 18:38 | disposition home or self-care (01) ==
PROVIDERS: Emergency Provider Nurse Practitioner Family; Family Provider Family Medicine; PCP Family Medicine
DX: F41.9 Anxiety disorder, unspecified (principal); R79.1 Abnormal coagulation profile
CPT/HCPCS: 36415; 84443; 85610; 99282; 99283

== ENCOUNTER → 2017-11-26 12:31 | Outpatient (CLI) | payer OTHER, MEDICAID, SELFPAY ==
[2017-11-26 12:57] LABS: Prothrombin Time 97.1 SECONDS (10.1-12.7)
[2017-11-26 13:02] LABS: INR 8.5 (0.9-1.3)
== END ==
PROVIDERS: Family Provider Family Medicine; PCP Family Medicine; Visit Provider Family Medicine
DX: I48.2 Chronic atrial fibrillation (principal)
CPT/HCPCS: 85610

== ENCOUNTER 2017-11-27 13:49 | Emergency (ER) | payer OTHER, MEDICAID, SELFPAY ==
[2017-11-27 14:05] VITALS: BP 119/70; PULSE 65; RESP 18; TEMP 37.2; O2SAT 98; BMI 28.3
[2017-11-27 15:30] LABS: Add Manual Diff / Slide Review NO; Basophils Percent Auto 1.6 % (0-2); Eosinophils Percent Auto 0.9 % (2-4); Hematocrit 39.3 % (36-46); Hemoglobin 13.3 g/dL (12.0-16.0); Lymphocytes Percent Auto 28.3 % (25-40); Mean Corpuscular HGB Conc 33.8 % (30-36); Mean Corpuscular Volume 85.6 fL (80-100); Monocytes Percent Auto 11.2 % (3-14); Neutrophils Absolute Auto 4100 /uL (3000-5900); Platelet Count 187 X10^3/uL (150-400); Red Blood Cell Count 4.59 X10^6/uL (4.0-5.2); Red Cell Distribution Width 14.2 % (11.6-14.8)
[2017-11-27 15:38] LABS: INR 3.9 (0.9-1.3); Prothrombin Time 43.4 SECONDS (10.1-12.7)
[2017-11-27 15:40] LABS: PTT Partial Thromboplastin Tim 47 SECONDS (26.4-36.2)
[2017-11-27 15:43] LABS: Alanine Aminotransferase 32 IU/L (9-52); Albumin 4.6 g/dL (3.5-5.0); Albumin Globulin Ratio 1.4 (1.0-2.8); Alkaline Phosphatase 99 U/L (38-126); Aspartate Aminotransferase 38 IU/L (14-36); Bilirubin Total 0.5 mg/dL (0.2-1.3); Blood Urea Nitrogen 20 mg/dL (7-17); Calcium 9.3 mg/dL (8.4-10.2); Carbon Dioxide 29 mmol/L (22-32); Chloride 104 mmol/L (98-107); Estimated Glomerular Filt Rate > 60.0 mL/min (>60); Globulin 3.3 g/dL (1.7-4.1); Glucose 90 mg/dL (80-110); HEMOLYSIS < 15 (0-50); Potassium 4.4 mmol/L (3.4-5.1); Sodium 141 mmol/L (137-145); Total Protein 7.9 g/dL (6.3-8.2)
--- NOTE | 2017-11-27 18:38 | ED.EXTPRO ---
HPI - Extremity Problem General Chief complaint: Extremity Problem,Nontraumatic Stated complaint: LEG CRAMPS, INR IS 8.5 Time Seen by Provider: 11/27/17 18:15 Source: patient and family Mode of arrival: ambulatory Limitations: no limitations History of Present Illness HPI Narrative: Patient presents to the emergency department with a chief complaint of bilateral lower extremity discomfort and an outpatient INR that measured 8.5. She was encouraged to come by her doctor's office it. She denies any headache or blurred vision. She denies any numbness, tingling or weakness. She denies any chest pain or shortness of breath. She denies any bleeding gums, bloody nose or blood in stool. Patient states that it is her bilateral ?howe bones ?that hurt. MD Complaint: extremity pain Onset (ago): day(s) Pain Consistency: constant Quality: aching Radiation: none Relieving factors: rest Exacerbating factors: walking and exertion Associated symptoms: denies other symptoms Related Data Home Medications Medication Instructions Recorded Confirmed aspirin 81 mg PO QDAY #0 04/24/17 11/02/17 warfarin [Coumadin] 3 mg PO WEFR 09/22/17 11/02/17 Previous Rx's Medication Instructions Recorded diclofenac sodium [Voltaren] 1 tyrone TOPICAL Q8H #100 gm 07/13/17 nicotine [Nicoderm CQ] 14 mg TD QAM #30 patch 07/13/17 ondansetron 4 mg PO Q6H PRN #10 tab 09/22/17 loratadine 10 mg tablet 10 mg PO DAILY #30 tab 10/22/17 citalopram 40 mg tablet 40 mg PO QDAY #30 10/23/17 furosemide 80 mg PO QDAY #30 tab 10/23/17 gabapentin 400 mg capsule 1,200 mg PO BID #180 cap 10/23/17 levothyroxine [Synthroid] 50 mcg PO QAM #90 tab 10/23/17 omeprazole 20 mg capsule,delayed 20 mg PO HS #30 cap 10/23/17 release simvastatin 40 mg tablet 40 mg PO HS #30 tab 10/23/17 warfarin 6 mg PO QDAY #34 tab 10/28/17 albuterol sulfate HFA 90 2 puff INHALATION QID PRN #8.5 gram 11/02/17 mcg/actuation aerosol inhaler buspirone 15 mg tablet 7.5 mg PO BID #14 tab 11/18/17 jalazjvtte-cuiilnpljydsc-lwjdtwve 1 - 2 tab PO Q4H PRN #20 tab 11/19/17 50 mg-325 mg-40 mg tablet alprazolam 1 mg tablet 1 mg PO HS #30 tab 11/25/17 oxycodone-acetaminophen 7.5 mg-325 1 tab PO BID #60 tab 11/25/17 mg tablet potassium chloride ER 20 mEq 20 meq PO AMCC #30 tab 11/26/17 tablet,extended release(part/cryst) Allergies Allergy/AdvReac Type Severity Reaction Status Date / Time adhesive tape [ADHESIVE TAPE] Allergy Unknown RASH Verified 11/03/17 17:11 clindamycin [CLINDAMYCIN] Allergy Unknown RASH Verified 11/03/17 17:11 Penicillins [PENICILLINS] Allergy Unknown RASH Verified 11/03/17 17:11 phytonadione (vitamin K1) Allergy Unknown RASH Verified 11/03/17 17:11 [PHYTONADIONE (VITAMIN K1)] prochlorperazine Allergy Unknown AKATHISIA Verified 11/03/17 17:11 [PROCHLORPERAZINE] morphine [MORPHINE] AdvReac Unknown NAUSEA Verified 11/03/17 17:11 VOMITING Review of Systems Review of Systems All systems reviewed & are unremarkable except as noted in HPI and below Constitutional Denies chills, Denies fever(s), Denies lethargy and Denies weakness Eyes Denies change in vision, Denies eye discharge, Denies irritation and Denies loss of vision ENT Ears, Nose, Mouth, and Throat: Denies change in voice, Denies neck pain and Denies sore throat Cardiovascular Denies chest pain, Denies irregular heart rhythm, Denies lightheadedness, Denies palpitations, Denies dyspnea, Denies dyspnea on exertion and Denies orthopnea Respiratory Denies cough, Denies dyspnea, Denies dyspnea on exertion and Denies wheezing Gastrointestinal Gastrointestinal: Denies abdominal pain, Denies change in bowel habits, Denies diarrhea, Denies nausea and Denies vomiting Genitourinary Denies hematuria, Denies flank pain, Denies urinary incontinence and Denies urinary urgency Musculoskeletal Reports muscle cramps and Denies neck pain Integumentary/Breasts Denies pruritus, Denies erythema, Denies rash and Denies wounds Neurologic Denies confusion, Denies loss of vision and Denies weakness Psychiatric Denies anxiety, Denies confusion, Denies depression, Denies homicidal ideation and Denies suicidal ideation Endocrine Denies palpitations Hematologic/Lymphatic Denies easy bruising Allergic/Immunologic Denies wheezing PFSH Medical History Anxiety (Chronic Unknown) Arthritis (Chronic Unknown) Asthma (Chronic Unknown) Atrial fibrillation (Chronic Unknown) COPD (chronic obstructive pulmonary disease) (Chronic Unknown) Chronic back pain (Chronic Unknown) Coronary artery disease (Chronic Unknown) Depression (Chronic Unknown) Fibromyalgia (Chronic Unknown) GERD (gastroesophageal reflux disease) (Chronic Unknown) Generalized headaches (Chronic Unknown) Hearing loss (Chronic Unknown) Hx of coagulation disorder (Chronic 1999) Hypertension (Chronic Unknown) Hypothyroidism (Chronic Unknown) IBS (irritable bowel syndrome) (Chronic Unknown) Migraines (Chronic Unknown) Neuropathy (Chronic Unknown) PTSD (post-traumatic stress disorder) (Chronic Unknown) Pulmonary hypertension (Chronic Unknown) Restless leg syndrome (Chronic Unknown) Rheumatoid arthritis (Chronic Unknown) Sleep apnea (Chronic Unknown) Vertigo (Chronic Unknown) Abnormal chest x-ray (Resolved Unknown) Ankle pain (Resolved Unknown) Chickenpox (Resolved Unknown) Endometriosis (Resolved Unknown) Fractures (Resolved Unknown) Hematuria (Resolved Unknown) Hx of myocardial infarction (Resolved 1998) Hx of renal failure (Resolved Unknown) MRSA (methicillin resistant Staphylococcus aureus) (Resolved Unknown) Measles (Resolved Unknown) Mumps (Resolved Unknown) Pancreatitis (Resolved Unknown) Rheumatic fever (Resolved Unknown) Shoulder pain (Resolved Unknown) TIA (transient ischemic attack) (Resolved Unknown) Surgical History History of lung surgery (Resolved Unknown) History of mitral valve prosthesis (Resolved 1998) Status post hernia repair Status post hysterectomy Family History Brother Age: 56 RA (rheumatoid arthritis) COPD (chronic obstructive pulmonary disease) Mother Breast cancer Father No problems noted. Sister Cancer Social History Smoking Status: Current every day smoker Exam Initial Vital Signs Initial Vital Signs: Vital Signs Temperature 99.0 F 11/27/17 14:05 Pulse Rate 65 11/27/17 14:05 Respiratory Rate 18 11/27/17 14:05 Blood Pressure 119/70 11/27/17 14:05 Pulse Oximetry 98 11/27/17 14:05 Course Orders Ordered: ED Orders 11/27/17 15:23 CBC [Complete Blood Count AUTO DIFF] Stat Comprehensive Metabolic Panel Stat Partial Thromboplastin Time Stat Prothrombin Time INR Stat Vital Signs - 8 hr 11/27/17 14:05 Temperature 99.0 F Pulse Rate 65 Respiratory Rate 18 Blood Pressure 119/70 Pulse Oximetry 98 MDM - Extremity (Nontraumatic) Lab Data Result diagrams: 11/27/17 15:23 11/27/17 15:23 Lab Results 11/27/17 11/27/17 11/27/17 Range/Units 15:23 15:23 15:23 WBC 7.0 (4.5-11.0) X10^3/uL RBC 4.59 (4.0-5.2) X10^6/uL Hgb 13.3 (12.0-16.0) g/dL Hct 39.3 (36-46) % MCV 85.6 (80-100) fL MCH 29.0 (26-34) PG MCHC 33.8 (30-36) % RDW 14.2 (11.6-14.8) % Plt Count 187 (150-400) X10^3/uL Neut % (Auto) 58.0 (50-75) % Lymph % (Auto) 28.3 (25-40) % [place] % (Auto) 11.2 (3-14) % Eos % (Auto) 0.9 L (2-4) % Baso % (Auto) 1.6 (0-2) % Neut # (Auto) 4100 (6147-0848) /uL PT 43.4 H D (10.1-12.7) SECONDS INR 3.9 H (0.9-1.3) APTT 47 H (26.4-36.2) SECONDS Sodium 141 (137-145) mmol/L Potassium 4.4 (3.4-5.1) mmol/L Chloride 104 (98-107) mmol/L Carbon Dioxide 29 (22-32) mmol/L BUN 20 H (7-17) mg/dL Creatinine 0.80 (0.52-1.04) mg/dL Estimated GFR > 60.0 (>60) mL/min BUN/Creatinine Ratio 25.0 H (6-22) Glucose 90 (80-110) mg/dL Calcium 9.3 (8.4-10.2) mg/dL Total Bilirubin 0.5 (0.2-1.3) mg/dL AST 38 H (14-36) IU/L ALT 32 (9-52) IU/L Alkaline Phosphatase 99 (38-126) U/L Total Protein 7.9 (6.3-8.2) g/dL Albumin 4.6 (3.5-5.0) g/dL Globulin 3.3 (1.7-4.1) g/dL Albumin/Globulin Ratio 1.4 (1.0-2.8) Imaging Data Xray Tib R: Radiologist's impression: PROCEDURE: XR TIBIA FUBULA RT 2V INDICATIONS: deep bone pain, no obvious injury TECHNIQUE: 2 views of the tibia and fibula were acquired. COMPARISON: [facility], , XR TIBIA FIBULA LT 2V, 11/27/2017, 18:32. FINDINGS: Bones: Corticated ossification distal to the lateral malleolus. No suspicious bony lesions. Soft tissues: No suspicious soft tissue calcifications or masses. IMPRESSION: Corticated calcification distal to lateral malleolus suspected to be chronic. Recommend correlation to point tenderness. Dictated by: Sharon Wilde M.D. on 11/27/2017 at 20:18 Approved by: Sharon Wilde M.D. on 11/27/2017 at 20:19 Xray Tib L: Radiologist's impression: PROCEDURE: XR TIBIA FIBULA RT 2V INDICATIONS: deep bone pain TECHNIQUE: 2 views of the tibia and fibula were acquired. COMPARISON: [facility], , XR TIBIA FIBULA RT 2V, 11/27/2017, 18:32. FINDINGS: Bones: There is a corticated ossification distal to the lateral malleolus. No suspicious bony lesions. Soft tissues: No suspicious soft tissue calcifications or masses. IMPRESSION: Corticated ossification distal to the lateral malleolus suspected to be chronic. Recommend correlation of point tenderness. Dictated by: Sharon Wilde M.D. on 11/27/2017 at 20:17 Approved by: Sharon Wilde M.D. on 11/27/2017 at 20:18 Discharge Plan Departure Patient Disposition: Home, Self-Care Clinical Impression: Bilateral leg pain Discharge Date/Time: 11/27/17 20:14 Interventions: ED Discharge Assessment Last Done: 11/27/17 20:13 Instructions: DI for Leg Pain Activity Restrictions/Additional Instructions: *You have been diagnosed with [bilateral leg pain, supratherapeutic INR ] *What to do: *Take medications as directed such as Tylenol or Motrin for pain *Follow up with your primary care provider in 2-3 days, call for an appointment. Let them know you were seen in the Emergency Department and that we ask that you be seen in follow up *Return to ER if you should have any new, worsening or concerning symptoms, such as [ increasing pain, redness, swelling, fever over 101 F, or other symptoms] Prescriptions: No Action aspirin 81 MG tablet,chewable 81 mg PO QDAY Qty: 0 RF: 0 diclofenac sodium [Voltaren] 1 % gel 1 tyrone Topical Q8H Qty: 100 RF: 2 nicotine [Nicoderm CQ] 14 MG patch 24 hour 14 mg TD QAM Qty: 30 RF: 2 loratadine 10 mg tablet 10 mg PO DAILY Qty: 30 RF: 3 furosemide 80 mg tablet 80 mg PO QDAY Qty: 30 RF: 0 levothyroxine [Synthroid] 50 mcg tablet 50 mcg PO QAM Qty: 90 RF: 0 gabapentin [Neurontin] 400 mg capsule 1,200 mg PO BID Qty: 180 RF: 0 omeprazole 20 mg capsule,delayed release(DR/EC) 20 mg PO HS Qty: 30 RF: 0 simvastatin 40 mg tablet 40 mg PO HS Qty: 30 RF: 2 citalopram 40 mg tablet 40 mg PO QDAY Qty: 30 RF: 0 warfarin 6 mg tablet 6 mg PO QDAY Qty: 34 RF: 0 albuterol sulfate [Ventolin HFA] 90 mcg/actuation HFA aerosol inhaler 2 puff INHALATION QID PRN (Reason: shortness of breath or wheezing) Qty: 8.5 RF: 1 buspirone 15 mg tablet 7.5 mg PO BID Qty: 14 RF: 0 ljnonrinjj-cfewvsiirybwl-emxa 50-325-40 mg tablet 1 - 2 tab PO Q4H PRN (Reason: headaches) Qty: 20 RF: 0 alprazolam 1 mg tablet 1 mg PO HS Qty: 30 RF: 0 oxycodone-acetaminophen 7.5-325 mg tablet 1 tab PO BID Qty: 60 RF: 0 potassium chloride [Klor-Con M20] 20 mEq tablet,ER particles/crystals 20 meq PO AMCC Qty: 30 RF: 0 ondansetron 4 mg tablet,disintegrating 4 mg PO Q6H PRN (Reason: nausea and vomiting) Qty: 10 RF: 0 warfarin [Coumadin] 3 MG tablet 3 mg PO WEFR RF: 0 Referrals: Nancy Ba DO [Primary Care Provider] -
[2017-11-27 18:40] VITALS: BP 145/75; PULSE 51; RESP 14; O2SAT 99
--- NOTE | 2017-11-27 18:44 | DI.RAD.S_ITS ---
PROCEDURE: XR TIBIA FUBULA RT 2V INDICATIONS: deep bone pain, no obvious injury TECHNIQUE: 2 views of the tibia and fibula were acquired. COMPARISON: [facility], CR, XR TIBIA FIBULA LT 2V, 11/27/2017, 18:32. FINDINGS: Bones: Corticated ossification distal to the lateral malleolus. No suspicious bony lesions. Soft tissues: No suspicious soft tissue calcifications or masses. IMPRESSION: Corticated calcification distal to lateral malleolus suspected to be chronic. Recommend correlation to point tenderness. Dictated by: Sharon Wilde M.D. on 11/27/2017 at 20:18 Approved by: Sharon Wilde M.D. on 11/27/2017 at 20:19
--- NOTE | 2017-11-27 18:46 | DI.RAD.S_ITS ---
PROCEDURE: XR TIBIA FIBULA RT 2V INDICATIONS: deep bone pain TECHNIQUE: 2 views of the tibia and fibula were acquired. COMPARISON: [facility], CR, XR TIBIA FIBULA RT 2V, 11/27/2017, 18:32. FINDINGS: Bones: There is a corticated ossification distal to the lateral malleolus. No suspicious bony lesions. Soft tissues: No suspicious soft tissue calcifications or masses. IMPRESSION: Corticated ossification distal to the lateral malleolus suspected to be chronic. Recommend correlation of point tenderness. Dictated by: Sharon Wilde M.D. on 11/27/2017 at 20:17 Approved by: Sharon Wilde M.D. on 11/27/2017 at 20:18
[2017-11-27 19:35] VITALS: BP 147/80; PULSE 48; O2SAT 100
== END 2017-11-27 20:14 | disposition home or self-care (01) ==
PROVIDERS: Emergency Medicine; Emergency Provider Emergency Medicine; Family Provider Family Medicine; PCP Family Medicine
DX: M79.604 Pain in right leg (principal); M79.605 Pain in left leg
CPT/HCPCS: 73590; 80053; 85025; 85610; 85730; 99282; 99284

== ENCOUNTER 2017-12-04 22:37 | Emergency (ER) | payer OTHER, MEDICAID, SELFPAY ==
[2017-12-04 22:48] VITALS: BP 145/79; PULSE 62; RESP 14; TEMP 36.9; O2SAT 97; BMI 26.6
--- NOTE | 2017-12-04 22:52 | ED.CHESTPAIN ---
HPI - Chest Pain General Chief Complaint: Chest Pain Stated Complaint: Chest Pain Time Seen by Provider: 12/04/17 22:47 Source: patient and EMS Mode of arrival: EMS Limitations: no limitations History of Present Illness HPI narrative: Patient is a 62-year-old female who presents with chest pain. She has history of, atrial fibrillation and cardiac valve replacement. She says this pain is quite severe few feels like previous heart attack. It goes through to her back. She looks uncomfortable. She did receive nitro spray by EMS prior to arrival. She also has a history of anxiety. 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 She feels like she is getting pushed out. She has been quite stressed and upset about the situation. She does not feel like the situation has made the pain tonight. Sound as though she has had heart attack she says but no stent was ever placed. She said it was a number of years ago and she was in the hospital. MD complaint: chest pain Duration: constant Onset: during rest Pain location: left chest Severity: severe Quality: sharp Treatments prior to arrival chest pain: nitroglycerin Related Data Home Medications Medication Instructions Recorded Confirmed aspirin 81 mg PO QDAY #0 04/24/17 11/02/17 warfarin [Coumadin] 3 mg PO WEFR 09/22/17 11/02/17 Previous Rx's Medication Instructions Recorded diclofenac sodium [Voltaren] 1 tyrone TOPICAL Q8H #100 gm 07/13/17 ondansetron 4 mg PO Q6H PRN #10 tab 09/22/17 loratadine 10 mg tablet 10 mg PO DAILY #30 tab 10/22/17 citalopram 40 mg tablet 40 mg PO QDAY #30 10/23/17 furosemide 80 mg PO QDAY #30 tab 10/23/17 gabapentin 400 mg capsule 1,200 mg PO BID #180 cap 10/23/17 levothyroxine [Synthroid] 50 mcg PO QAM #90 tab 10/23/17 omeprazole 20 mg capsule,delayed 20 mg PO HS #30 cap 10/23/17 release simvastatin 40 mg tablet 40 mg PO HS #30 tab 10/23/17 warfarin 6 mg PO QDAY #34 tab 10/28/17 albuterol sulfate HFA 90 2 puff INHALATION QID PRN #8.5 gram 06/25/18 mcg/actuation aerosol inhaler yxfzfkujsb-ysyrttifmdjzn-iccwflqs 1 - 2 tab PO Q4H PRN #20 tab 11/19/17 50 mg-325 mg-40 mg tablet alprazolam 1 mg tablet 1 mg PO HS #30 tab 11/25/17 oxycodone-acetaminophen 7.5 mg-325 1 tab PO BID #60 tab 11/25/17 mg tablet potassium chloride ER 20 mEq 20 meq PO AMCC #30 tab 11/26/17 tablet,extended release(part/cryst) nicotine 14 mg/24 hr daily 14 mg TRANSDERMAL QAM #30 patch 12/01/17 transdermal patch buspirone 15 mg tablet 7.5 mg PO BID #30 tab 12/04/17 Allergies Allergy/AdvReac Type Severity Reaction Status Date / Time adhesive tape [ADHESIVE TAPE] Allergy Unknown RASH Verified 12/01/17 14:44 clindamycin [CLINDAMYCIN] Allergy Unknown RASH Verified 12/01/17 14:44 Penicillins [PENICILLINS] Allergy Unknown RASH Verified 12/01/17 14:44 phytonadione (vitamin K1) Allergy Unknown RASH Verified 12/01/17 14:44 [PHYTONADIONE (VITAMIN K1)] prochlorperazine Allergy Unknown AKATHISIA Verified 12/01/17 14:44 [PROCHLORPERAZINE] morphine [MORPHINE] AdvReac Unknown NAUSEA Verified 12/01/17 14:44 VOMITING Review of Systems Review of Systems GENERAL: Denies chills, fatigue, malaise, fever, sweats, travel HEENT: Denies sinus pain, ear pain, sore throat, difficulty swallowing, neck pain RESPIRATORY: Denies dyspnea, cough, wheezing, hemoptysis, sputum. CARDIOVASCULAR: See HPI GASTROINTESTINAL: Denies nausea, vomiting, abdominal pain, diarrhea, constipation, melena. : Denies dysuria, frequency, incontinence, hematuria, urinary retention, flank pain. MUSCULOSKELETAL: Denies weakness, joint pain, or bony pain SKIN: No rash, no erythema, no pruritus NEUROLOGIC: Denies weakness, dizziness, headache, numbness, change in speech, confusion PSYCHIATRIC: No concerning psychosocial issues. 12 point review of systems is negative except for those stated above and HPI [facility] Medical History Anxiety (Chronic Unknown) Arthritis (Chronic Unknown) Asthma (Chronic Unknown) Atrial fibrillation (Chronic Unknown) COPD (chronic obstructive pulmonary disease) (Chronic Unknown) Chronic back pain (Chronic Unknown) Coronary artery disease (Chronic Unknown) Depression (Chronic Unknown) Fibromyalgia (Chronic Unknown) GERD (gastroesophageal reflux disease) (Chronic Unknown) Generalized headaches (Chronic Unknown) Hearing loss (Chronic Unknown) Hx of coagulation disorder (Chronic 1999) Hypertension (Chronic Unknown) Hypothyroidism (Chronic Unknown) IBS (irritable bowel syndrome) (Chronic Unknown) Migraines (Chronic Unknown) Neuropathy (Chronic Unknown) PTSD (post-traumatic stress disorder) (Chronic Unknown) Pulmonary hypertension (Chronic Unknown) Restless leg syndrome (Chronic Unknown) Rheumatoid arthritis (Chronic Unknown) Sleep apnea (Chronic Unknown) Vertigo (Chronic Unknown) Abnormal chest x-ray (Resolved Unknown) Ankle pain (Resolved Unknown) Chickenpox (Resolved Unknown) Endometriosis (Resolved Unknown) Fractures (Resolved Unknown) Hematuria (Resolved Unknown) Hx of myocardial infarction (Resolved 1998) Hx of renal failure (Resolved Unknown) MRSA (methicillin resistant Staphylococcus aureus) (Resolved Unknown) Measles (Resolved Unknown) Mumps (Resolved Unknown) Pancreatitis (Resolved Unknown) Rheumatic fever (Resolved Unknown) Shoulder pain (Resolved Unknown) TIA (transient ischemic attack) (Resolved Unknown) Surgical History History of lung surgery (Resolved ) History of mitral valve prosthesis (Resolved 1998) Status post hernia repair Status post hysterectomy Family History Brother Age: 56 RA (rheumatoid arthritis) COPD (chronic obstructive pulmonary disease) Mother Breast cancer Father No problems noted. Sister Cancer Social History Smoking Status: Current every day smoker alcohol intake: never substance use type: marijuana (On occasion to help calm down. ) Exam Initial Vital Signs Initial Vital Signs: Vital Signs Temperature 98.4 F 12/04/17 22:48 Pulse Rate 62 12/04/17 22:48 Respiratory Rate 14 12/04/17 22:48 Blood Pressure 145/79 H 12/04/17 22:48 Pulse Oximetry 97 12/04/17 22:48 GENERAL: Appears in pain uncomfortable HEENT: Head atraumatic,EOMI, pupils reactive, face symmetric CARDIOVASCULAR: Regular rate and rhythm without murmurs, rubs or gallops. Pain is not reproducible with palpation RESPIRATORY: Breath sounds equal bilaterally, no wheezes rales or rhonchi. ABDOMEN: Soft, nontender. Normoactive bowel sounds all 4 quadrants. No guarding or rebound. EXTREMITIES: Normal range of motion, no clubbing or edema. Neurovascularly intact NEUROLOGICAL: Alert and oriented x4.Normal gait and speech. Cranial nerves II through XII grossly intact. [Good upzfrb-es-stjc, good zfbl-ys-rnsj, strength equal bilaterally, no dysarthria or aphasia, sensation in tact to soft touch bilaterally, no visual changes, no facial droop] SKIN: Warm, dry, no laceration, no petechiae, no rashes or lesions. Scores HEART Score Heart Score history: Slightly Suspicious Heart Score EKG: Non-Specific repolarization disturbance Heart Score Age: 45-64 years old Heart Score risk factors: 1-2 risk factors Heart Score troponin: < or = to normal limit Heart Score Total: 3 Course Orders Ordered: ED Orders 12/04/17 22:30 B Type Natriuretic Peptide Stat Complete Blood Count AUTO DIFF Stat Comprehensive Metabolic Panel Stat Lipase Stat Partial Thromboplastin Time Stat Prothrombin Time INR Stat Troponin & CK Cardiac Panel Stat 12/04/17 23:00 CT angio chest abdomen pelvis Stat EKG-12 Lead Stat 12/05/17 EKG-12 Lead Routine 12/05/17 01:37 Troponin I Stat Discontinued Medications Hydromorphone HCl (Dilaudid) 1 mg IV NOW ONE Stop: 12/04/17 23:01 Last Admin: 12/04/17 23:06 Dose: 1 mg Hydromorphone HCl (Dilaudid) 0.5 mg IV NOW ONE Stop: 12/05/17 02:49 Last Admin: 12/05/17 02:53 Dose: 0.5 mg Sodium Chloride (Normal Saline 0.9%) 1,000 mls @ 150 mls/hr IV CONT LUIS ANTONIO Last Infusion: 12/05/17 03:21 Dose: 0 mls/hr Admin: 12/04/17 23:05 Dose: 150 mls/hr Lorazepam (Ativan) 1 mg IV NOW ONE Stop: 12/04/17 23:57 Last Admin: 12/05/17 00:04 Dose: 1 mg Nitroglycerin (Nitrostat) 0.4 mg SL NOW ONE Stop: 12/05/17 02:21 Last Admin: 12/05/17 02:25 Dose: 0.4 mg Reevaluation(s) Reevaluation #2: 2nd troponin back and negative. Went to talk to patient. She appears comfortable stating that the pain is now starting to come back. She does have a head of ict Dr. Araceli willoughby all. She was actually supposed to go to [facility] with some like a loop recorder to monitor her heart rate. She is bradycardic at times but is asymptomatic Time: 02:21 Vital Signs - 8 hr 12/04/17 22:48 12/05/17 01:19 12/05/17 02:25 Temperature 98.4 F Pulse Rate 62 43 L 61 Respiratory Rate 14 16 Blood Pressure 145/79 H 139/86 H Blood Pressure [Right Arm] 111/68 Pulse Oximetry 97 97 12/05/17 02:32 12/05/17 03:30 Temperature Pulse Rate 54 L 66 Respiratory Rate 14 20 Blood Pressure 100/56 L 101/53 L Blood Pressure [Right Arm] 100/56 L Pulse Oximetry 99 98 MDM - Chest Pain Medical Records Data Attestation: I reviewed the patient's medical records. Lab Data Attestation: I reviewed the patient's lab results. Result diagrams: 12/04/17 22:30 12/04/17 22:30 Lab Results 12/04/17 12/04/17 12/04/17 Range/Units 22:30 22:30 22:30 WBC 8.1 (4.5-11.0) X10^3/uL RBC 4.60 (4.0-5.2) X10^6/uL Hgb 13.3 (12.0-16.0) g/dL Hct 39.8 (36-46) % MCV 86.5 (80-100) fL MCH 28.8 (26-34) PG MCHC 33.3 (30-36) % RDW 14.4 (11.6-14.8) % Plt Count 196 (150-400) X10^3/uL Neut % (Auto) 59.5 (50-75) % Lymph % (Auto) 28.7 (25-40) % [place] % (Auto) 9.2 (3-14) % Eos % (Auto) 1.2 L (2-4) % Baso % (Auto) 1.4 (0-2) % Neut # (Auto) 4800 (4456-6126) /uL PT 18.7 H D (10.1-12.7) SECONDS INR 1.7 H (0.9-1.3) APTT 34 D (26.4-36.2) SECONDS Sodium 144 (137-145) mmol/L Potassium 4.3 (3.4-5.1) mmol/L Chloride 109 H (98-107) mmol/L Carbon Dioxide 24 (22-32) mmol/L BUN 16 (7-17) mg/dL Creatinine 1.00 (0.52-1.04) mg/dL Estimated GFR 56.6 L (>60) mL/min BUN/Creatinine Ratio 16.0 (6-22) Glucose 85 (80-110) mg/dL Calcium 9.7 (8.4-10.2) mg/dL Total Bilirubin 0.4 (0.2-1.3) mg/dL AST 36 (14-36) IU/L ALT 25 (9-52) IU/L Alkaline Phosphatase 85 (38-126) U/L Total Creatine Kinase 152 H (30-135) U/L CK-MB (CK-2) 2.48 H (<2.37) ng/mL CK-MB (CK-2) Rel Index 1.6 (1.5-5.0) % Troponin I < 0.012 (0.01-0.034) ng/mL B-Natriuretic Peptide 117.0 H (<100) Total Protein 8.2 (6.3-8.2) g/dL Albumin 4.5 (3.5-5.0) g/dL Globulin 3.7 (1.7-4.1) g/dL Albumin/Globulin Ratio 1.2 (1.0-2.8) Lipase 116 (23-300) U/L 12/05/17 Range/Units 01:37 WBC (4.5-11.0) X10^3/uL RBC (4.0-5.2) X10^6/uL Hgb (12.0-16.0) g/dL Hct (36-46) % MCV (80-100) fL MCH (26-34) PG MCHC (30-36) % RDW (11.6-14.8) % Plt Count (150-400) X10^3/uL Neut % (Auto) (50-75) % Lymph % (Auto) (25-40) % [place] % (Auto) (3-14) % Eos % (Auto) (2-4) % Baso % (Auto) (0-2) % Neut # (Auto) (6765-8244) /uL PT (10.1-12.7) SECONDS INR (0.9-1.3) APTT (26.4-36.2) SECONDS Sodium (137-145) mmol/L Potassium (3.4-5.1) mmol/L Chloride (98-107) mmol/L Carbon Dioxide (22-32) mmol/L BUN (7-17) mg/dL Creatinine (0.52-1.04) mg/dL Estimated GFR (>60) mL/min BUN/Creatinine Ratio (6-22) Glucose (80-110) mg/dL Calcium (8.4-10.2) mg/dL Total Bilirubin (0.2-1.3) mg/dL AST (14-36) IU/L ALT (9-52) IU/L Alkaline Phosphatase (38-126) U/L Total Creatine Kinase (30-135) U/L CK-MB (CK-2) (<2.37) ng/mL CK-MB (CK-2) Rel Index (1.5-5.0) % Troponin I < 0.012 (0.01-0.034) ng/mL B-Natriuretic Peptide (<100) Total Protein (6.3-8.2) g/dL Albumin (3.5-5.0) g/dL Globulin (1.7-4.1) g/dL Albumin/Globulin Ratio (1.0-2.8) Lipase (23-300) U/L Imaging Data CT angio chest abdomen pelvis: Radiologist's impression: No ureteral dissection, aneurysm or periaortic fluid. No branch occlusion. Incidental finding of subtle lung herniation noted on the right anterior on image 46/5. Also small esophageal hiatal hernia distension of upper GI tract nonspecific. Moderate amount of intracolonic stool. No appendicitis or diverticulitis. ECG Data Attestation: I personally reviewed and interpreted this ECG as follows: Prior ECG tracings: available for review Interpretation: EKG 1.: Sinus rhythm rate [address] elevation in inferior leads with Q-waves is of appears to be benign early repolarization. This is seen on all previous EKG without any ST depression. No T-wave inversions cold normal EKG 2. Sinus rhythm rate 63 no changes, EKG 3. Sinus rhythm rate 47 no changes from previous EKGs MDM Narrative Medical decision making narrative: Patient has no known coronary artery disease. She does have head of ict for bradycardia. 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 She was seen earlier this week by her primary for an anxiety disorder. Even referred to Psychiatry. Apparently she was requesting more benzos. No prescriptions of benzos were given. She has 2-troponins 3 hr apart EKGs remained unchanged. No sign of dissection. pain Is recurrent pain in the ED which is unchanged by nitro. She is calm down by Dilaudid. We discussed at length the importance of following up with her head of ict. Also that she should return to the ER if it is getting any worse. CT did show of subtle small right-sided lung herniation. I do not believe this to be the cause of any of her problems. She points to the left side and says it radiates down to under her left breast. She has no specific ongoing right-sided chest pain. Discharge Plan Departure Patient Disposition: Home, Self-Care Clinical Impression: Atypical chest pain Discharge Date/Time: 12/05/17 03:32 Interventions: ED Discharge Assessment Last Done: 12/05/17 03:30 Instructions: DI for Atypical Chest Pain Activity Restrictions/Additional Instructions: *You have been diagnosed with atypical chest pain *What to do: Highly recommended that you get into her head of ict for further evaluation. *Continue to take medications as directed *Follow up with your primary care provider in 2-3 days, call Dr. Reinoso Thursday morning to schedule follow-up appointment *Return to ER if you should have worsening chest pain, shortness of breath, heart palpitations, a passing out or any new, worsening or concerning symptoms Prescriptions: No Action nicotine [Nicoderm CQ] 14 mg/24 hr patch 24 hour 14 mg Transdermal QAM Qty: 30 RF: 0 aspirin 81 MG tablet,chewable 81 mg PO QDAY Qty: 0 RF: 0 diclofenac sodium [Voltaren] 1 % gel 1 tyrone Topical Q8H Qty: 100 RF: 2 loratadine 10 mg tablet 10 mg PO DAILY Qty: 30 RF: 3 furosemide 80 mg tablet 80 mg PO QDAY Qty: 30 RF: 0 levothyroxine [Synthroid] 50 mcg tablet 50 mcg PO QAM Qty: 90 RF: 0 gabapentin [Neurontin] 400 mg capsule 1,200 mg PO BID Qty: 180 RF: 0 omeprazole 20 mg capsule,delayed release(DR/EC) 20 mg PO HS Qty: 30 RF: 0 simvastatin 40 mg tablet 40 mg PO HS Qty: 30 RF: 2 citalopram 40 mg tablet 40 mg PO QDAY Qty: 30 RF: 0 warfarin 6 mg tablet 6 mg PO QDAY Qty: 34 RF: 0 albuterol sulfate [Ventolin HFA] 90 mcg/actuation HFA aerosol inhaler 2 puff INHALATION QID PRN (Reason: shortness of breath or wheezing) Qty: 8.5 RF: 1 saewiizmga-hiozwmilfougu-osjz 50-325-40 mg tablet 1 - 2 tab PO Q4H PRN (Reason: headaches) Qty: 20 RF: 0 alprazolam 1 mg tablet 1 mg PO HS Qty: 30 RF: 0 oxycodone-acetaminophen 7.5-325 mg tablet 1 tab PO BID Qty: 60 RF: 0 potassium chloride [Klor-Con M20] 20 mEq tablet,ER particles/crystals 20 meq PO AMCC Qty: 30 RF: 0 buspirone 15 mg tablet 7.5 mg PO BID Qty: 30 RF: 0 ondansetron 4 mg tablet,disintegrating 4 mg PO Q6H PRN (Reason: nausea and vomiting) Qty: 10 RF: 0 warfarin [Coumadin] 3 MG tablet 3 mg PO WEFR RF: 0 Referrals: Bebo Reinoso MD [Physician] - Nancy Ba DO [Primary Care Provider] -
--- NOTE | 2017-12-04 22:58 | PC.NURSE ---
pt reports sudden onset of chest pain. hx of similar led to ME dx. hx of open heart surgery, mitral valve replacment. pt states she is having alot of stress latley due to difficulties with a neighbor. 3 rounds of nitro given in ambulance with no relief. placed on 2l o2.
--- NOTE | 2017-12-04 23:00 | DI.CT.S_ITS ---
PROCEDURE: CT ANGIO CHEST ABDOMEN PELVIS INDICATIONS: severe chest pain TECHNIQUE: Precontrast 5 mm thick sections acquired from the lung apices to the iliac crests. After the administration of intravenous contrast, 2.5 mm thick sections again acquired from the lung apices to the iliac crests. Maximum intensity projection (MIP) oblique sagittal and coronal reformats were then acquired. For radiation dose reduction, the following was used: automated exposure control. COMPARISON: [facility], CT, CT ABDOMEN PELVIS W CON, 10/22/2017, 17:20. FINDINGS: Image quality: Excellent. AORTA: The aorta demonstrates normal course and caliber throughout. Atheromatous calcification is present predominately within the infrarenal aorta. No aneurysmal dilatation. No dissection. No mural hematomas or thrombus. No aortic wall thickening. No periaortic fat stranding or free fluid. CHEST: Lungs and pleura: No acute airspace opacities. No pleural effusions or pneumothorax. Central and peripheral airways are patent and normal in caliber. Mediastinum: Heart size is normal. No pericardial effusion. No mediastinal or hilar adenopathy by size criteria. Central pulmonary arteries are normal in size. Esophagus is normal in caliber. No hiatal hernias. Bones and chest wall: Probable postsurgical changes noted at the right sternal costal margin where there is a small herniated focus of lung within the anterior chest wall (series 6, image 45). No axillary adenopathy by size criteria. Thyroid gland is unremarkable. No suspicious bony lesions. No vertebral body compression fractures. ABDOMEN: Vasculature: Celiac trunk and mesenteric arteries are patent. Renal arteries are also patent. Solid organs: Liver is normal in size and enhancement. Gallbladder is unremarkable. Biliary system is non dilated. Pancreas enhances normally. Spleen is normal in size and enhancement. No adrenal nodules. Both kidneys are normal in size and enhancement, without hydronephrosis. Peritoneum and bowel: No free fluid or air. Bowel loops are normal in caliber and wall thickness. The appendiceal stump is thin walled. Nodes and vessels: No retroperitoneal or mesenteric adenopathy by size criteria. Inferior vena cava is normal in morphology. Miscellaneous: No ventral hernias. PELVIS: Genitourinary: Bladder wall thickness is normal. Miscellaneous: No inguinal hernias or adenopathy. No ventral hernias. Bones: No suspicious bony lesions. No vertebral body compression fractures. IMPRESSION: 1. Mild aortic atheromatous calcification. No aneurysmal dilatation, stenosis, dissection, or mural thrombus. 2. Small pulmonary herniation at the anterior right lung as described above. It is unclear whether this may be the etiology of the patient's severe chest pain. Please correlate clinically with location. These findings are concordant with the overnight interpretation. Dictated by: Diandra Chanel M.D. on 12/05/2017 at 7:47 Approved by: Diandra Chanel M.D. on 12/05/2017 at 7:54
[2017-12-04] MEDS: SODIUM CHLORIDE 0.9% 1,000 ML 150 ML IV (23:05)
[2017-12-04] MEDS: HYDROMORPHONE 1 MG INJ IV (23:06)
[2017-12-04 23:09] LABS: Add Manual Diff / Slide Review NO; Basophils Percent Auto 1.4 % (0-2); Eosinophils Percent Auto 1.2 % (2-4); Hematocrit 39.8 % (36-46); Hemoglobin 13.3 g/dL (12.0-16.0); INR 1.7 (0.9-1.3); Lymphocytes Percent Auto 28.7 % (25-40); Mean Corpuscular HGB Conc 33.3 % (30-36); Mean Corpuscular Hemoglobin 28.8 PG (26-34); Mean Corpuscular Volume 86.5 fL (80-100); Monocytes Percent Auto 9.2 % (3-14); Neutrophils Absolute Auto 4800 /uL (3000-5900); Neutrophils Percent Auto 59.5 % (50-75); Platelet Count 196 X10^3/uL (150-400); Prothrombin Time 18.7 SECONDS (10.1-12.7); Red Cell Distribution Width 14.4 % (11.6-14.8); White Blood Cell Count 8.1 X10^3/uL (4.5-11.0)
[2017-12-04 23:11] LABS: PTT Partial Thromboplastin Tim 34 SECONDS (26.4-36.2)
[2017-12-04 23:13] LABS: Alanine Aminotransferase 25 IU/L (9-52); Albumin 4.5 g/dL (3.5-5.0); Albumin Globulin Ratio 1.2 (1.0-2.8); Alkaline Phosphatase 85 U/L (38-126); Aspartate Aminotransferase 36 IU/L (14-36); Bilirubin Total 0.4 mg/dL (0.2-1.3); Blood Urea Nitrogen 16 mg/dL (7-17); Calcium 9.7 mg/dL (8.4-10.2); Carbon Dioxide 24 mmol/L (22-32); Chloride 109 mmol/L (98-107); Creatine Kinase 152 U/L (30-135); Estimated Glomerular Filt Rate 56.6 mL/min (>60); Globulin 3.7 g/dL (1.7-4.1); Glucose 85 mg/dL (80-110); HEMOLYSIS < 15 (0-50); Lipase 116 U/L (23-300); Potassium 4.3 mmol/L (3.4-5.1); Sodium 144 mmol/L (137-145); Total Protein 8.2 g/dL (6.3-8.2)
[2017-12-04 23:25] LABS: Troponin I < 0.012 ng/mL (0.01-0.034)
[2017-12-04 23:28] LABS: CKMB % Relative Index 1.6 % (1.5-5.0); Creatine Kinase MB 2.48 ng/mL (<2.37)
--- NOTE | 2017-12-04 23:30 | PC.NURSE ---
pt reports pain is always present but intensity comes and goes to 10/10. 8/10 at best.
[2017-12-05] MEDS: LORazepam 2 MG/ML SYRINGE 1 MG IV (00:04)
--- NOTE | 2017-12-05 00:36 | PC.NURSE ---
pt family at bedside. pt speaking to family in calm tone in a quiet darkened room. pt reports some pain relief but still very high pain number. pt also reported feeling an anxiety attack. wanted someting for anxiety. provider notified, order recieved.
[2017-12-05 01:19] VITALS: BP 111/68; PULSE 43; RESP 16; O2SAT 97
--- NOTE | 2017-12-05 01:22 | PC.NURSE ---
pt hr bradying down to mid forties. provider notified.
[2017-12-05 02:08] LABS: Troponin I < 0.012 ng/mL (0.01-0.034)
[2017-12-05 02:25] VITALS: BP 139/86; PULSE 61
[2017-12-05] MEDS: NITROGLYCERIN 0.4 MG SL TAB SL (02:25)
[2017-12-05 02:32] VITALS: BP 100/56; PULSE 54; RESP 14; O2SAT 99
--- NOTE | 2017-12-05 02:33 | PC.NURSE ---
pt reports no change in chest pain from nitro. BP at lower limit for administration. holding and further nitro. provider notified.
[2017-12-05] MEDS: HYDROMORPHONE 1 MG INJ 0.5 MG IV (02:53)
--- NOTE | 2017-12-05 03:18 | PC.NURSE ---
pt bradycardic to 39 x two episodes. pt asymptomatic. provider notified. provider ok'd discharge.
[2017-12-05 03:30] VITALS: BP 101/53; PULSE 66; RESP 20; O2SAT 98
== END 2017-12-05 03:32 | disposition home or self-care (01) ==
PROVIDERS: Emergency Provider Emergency Medicine; Family Provider Family Medicine; PCP Family Medicine
DX: R07.89 Other chest pain (principal)
CPT/HCPCS: 36415; 71275; 74174; 80053; 82550; 82553; 83690; 83880; 84484; 85025; 85610; 85730; 93005; 96361; 96374; 96375; 96376; 99283; 99285; J1170; J2060; Q9967

== ENCOUNTER 2018-01-08 14:58 | Emergency (ER) | payer OTHER, MEDICAID, SELFPAY ==
[2018-01-08 15:05] VITALS: BP 114/50; PULSE 41; RESP 14; TEMP 36.8; O2SAT 99; BMI 30.2
--- NOTE | 2018-01-08 15:10 | DI.RAD.S_ITS ---
PROCEDURE: XR CHEST 1V INDICATIONS: chest pain TECHNIQUE: One view of the chest was acquired. COMPARISON: [facility], , CHEST 1 VIEW, 06/04/2017, 13:12. [facility], , CHEST 2 VIEW, 04/24/2017, 13:00. [facility], , CHEST 2 VIEW, 04/15/2017, 17:58. FINDINGS: Surgical changes and devices: Valve replacement at the middle third of the heart, previously present. Lungs and pleura: No pleural effusions or pneumothorax. Lungs are unchanged with a mild interstitial prominence previously present. Mediastinum: Mediastinal contours appear normal. Heart size is normal. Bones and chest wall: No suspicious bony lesions. Overlying soft tissues appear unremarkable. IMPRESSION: Mild chronic interstitial prominence, no changeover operator time. Source of new pain is not found. Dictated by: Adam Zavala M.D. on 01/08/2018 at 16:29 Approved by: Adam Zavala M.D. on 01/08/2018 at 16:30
[2018-01-08] MEDS: ASPIRIN 81 MG TAB 324 MG PO (15:13)
[2018-01-08 15:31] LABS: Add Manual Diff / Slide Review NO; Basophils Percent Auto 1.4 % (0-2); Eosinophils Percent Auto 0.8 % (2-4); Hematocrit 36.9 % (36-46); Hemoglobin 12.3 g/dL (12.0-16.0); Lymphocytes Percent Auto 32.1 % (25-40); Mean Corpuscular HGB Conc 33.3 % (30-36); Mean Corpuscular Hemoglobin 28.7 PG (26-34); Mean Corpuscular Volume 86.2 fL (80-100); Monocytes Percent Auto 9.9 % (3-14); Neutrophils Absolute Auto 3600 /uL (3000-5900); Neutrophils Percent Auto 55.8 % (50-75); Platelet Count 166 X10^3/uL (150-400); Red Blood Cell Count 4.28 X10^6/uL (4.0-5.2); Red Cell Distribution Width 15.2 % (11.6-14.8); White Blood Cell Count 6.4 X10^3/uL (4.5-11.0)
[2018-01-08 15:33] LABS: INR 2.7 (0.9-1.3); Prothrombin Time 30.2 SECONDS (10.1-12.7)
[2018-01-08 15:35] LABS: PTT Partial Thromboplastin Tim 44 SECONDS (26.4-36.2)
[2018-01-08 15:39] LABS: Alanine Aminotransferase 32 IU/L (9-52); Albumin Globulin Ratio 1.3 (1.0-2.8); Alkaline Phosphatase 85 U/L (38-126); Aspartate Aminotransferase 32 IU/L (14-36); BUN Creatinine Ratio 18.8 (6-22); Bilirubin Total 0.5 mg/dL (0.2-1.3); Blood Urea Nitrogen 15 mg/dL (7-17); Calcium 9.1 mg/dL (8.4-10.2); Carbon Dioxide 23 mmol/L (22-32); Chloride 113 mmol/L (98-107); Creatine Kinase 128 U/L (30-135); Estimated Glomerular Filt Rate > 60.0 mL/min (>60); Globulin 3.2 g/dL (1.7-4.1); Glucose 69 mg/dL (80-110); HEMOLYSIS < 15 (0-50); Lipase 78 U/L (23-300); Potassium 4.9 mmol/L (3.4-5.1); Sodium 143 mmol/L (137-145); Total Protein 7.2 g/dL (6.3-8.2)
[2018-01-08 15:54] LABS: CKMB % Relative Index 1.5 % (1.5-5.0); Creatine Kinase MB 1.88 ng/mL (<2.37); Troponin I < 0.012 ng/mL (0.01-0.034)
[2018-01-08 16:30] VITALS: BP 106/90; O2SAT 97
[2018-01-08 17:00] VITALS: BP 104/34; PULSE 50; O2SAT 98
--- NOTE | 2018-01-08 17:12 | ED_ITS ---
HPI - Weakness General Chief complaint: Weakness Stated complaint: LOW HEART RATE Time Seen by Provider: 01/08/18 16:50 Source: patient Mode of arrival: ambulatory Limitations: no limitations History of Present Illness HPI Narrative: Patient is a a 52-year-old female who presents from the walk-in clinic on for a lump on her head. Walk-in clinic was concerned because of her heart rate which is 30-40. She is normally bradycardic she is not dizzy or lightheaded no chest pain or shortness of breath. She is concerned because she feels some swelling all on the top of her scalp. It hurts whenever she touches it or moves it. She is unsure how long it has been there. She denies fever chills weakness numbness or tingling. Related Data Home Medications Medication Instructions Recorded Confirmed aspirin 81 mg PO QDAY #0 04/24/17 01/08/18 warfarin [Coumadin] 3 mg PO WEFR 09/22/17 01/08/18 Previous Rx's Medication Instructions Recorded diclofenac sodium [Voltaren] 1 tyrone TOPICAL Q8H #100 gm 07/13/17 ondansetron 4 mg PO Q6H PRN #10 tab 09/22/17 loratadine 10 mg tablet 10 mg PO DAILY #30 tab 10/22/17 levothyroxine [Synthroid] 50 mcg PO QAM #90 tab 10/23/17 simvastatin 40 mg tablet 40 mg PO HS #30 tab 10/23/17 buspirone 15 mg tablet See Label Instructions .ROUTE 12/07/17 .COMPLEX #15 tab albuterol sulfate HFA 90 2 puff INHALATION QID PRN #8.5 gram 12/14/17 mcg/actuation aerosol inhaler nicotine 21 mg/24 hr daily 1 patch TRANSDERMAL QAM #30 patch 12/21/17 transdermal patch alprazolam 1 mg tablet 1 mg PO HS #30 tab 12/24/17 oxycodone-acetaminophen 7.5 mg-325 1 tab PO BID #60 tab 12/24/17 mg tablet citalopram 40 mg tablet 40 mg PO QDAY #30 01/01/18 furosemide 80 mg PO QDAY #30 tab 01/01/18 gabapentin 400 mg capsule 1,200 mg PO BID #180 cap 01/01/18 omeprazole 20 mg capsule,delayed 20 mg PO HS #30 cap 01/01/18 release potassium chloride ER 20 mEq 20 meq PO AMCC #30 tab 01/01/18 tablet,extended release(part/cryst) uxfqobbdrl-zohcaekqpktnx-cumniuso 1 - 2 tab PO Q4H PRN #20 tab 01/05/18 50 mg-325 mg-40 mg tablet warfarin 6 mg tablet 6 mg PO QDAY #34 tab 01/07/18 Allergies Allergy/AdvReac Type Severity Reaction Status Date / Time adhesive tape [ADHESIVE TAPE] Allergy Unknown RASH Verified 01/08/18 13:53 clindamycin [CLINDAMYCIN] Allergy Unknown RASH Verified 01/08/18 13:53 Penicillins [PENICILLINS] Allergy Unknown RASH Verified 01/08/18 13:53 phytonadione (vitamin K1) Allergy Unknown RASH Verified 01/08/18 13:53 [PHYTONADIONE (VITAMIN K1)] prochlorperazine Allergy Unknown AKATHISIA Verified 01/08/18 13:53 [PROCHLORPERAZINE] morphine [MORPHINE] AdvReac Unknown NAUSEA Verified 01/08/18 13:53 VOMITING Review of Systems Review of Systems GENERAL: Denies chills, fatigue, malaise, fever, sweats, travel HEENT: Denies sinus pain, ear pain, sore throat, difficulty swallowing, neck pain RESPIRATORY: Denies dyspnea, cough, wheezing, hemoptysis, sputum. CARDIOVASCULAR: Denies chest pain, palpitations, orthopnea, edema GASTROINTESTINAL: Denies nausea, vomiting, abdominal pain, diarrhea, constipation, melena. : Denies dysuria, frequency, incontinence, hematuria, urinary retention, flank pain. MUSCULOSKELETAL: Denies weakness, joint pain, or bony pain SKIN: No rash, no erythema, no pruritus NEUROLOGIC: See HPI PSYCHIATRIC: No concerning psychosocial issues. 12 point review of systems is negative except for those stated above and HPI PFSH Family History Brother Age: 56 RA (rheumatoid arthritis) COPD (chronic obstructive pulmonary disease) Mother Breast cancer Father No problems noted. Sister Cancer Social History Smoking Status: Current every day smoker alcohol intake: never substance use type: marijuana (On occasion to help calm down. ) Exam Initial Vital Signs Initial Vital Signs: Vital Signs Temperature 98.2 F 01/08/18 15:05 Pulse Rate 41 L 01/08/18 15:05 Respiratory Rate 14 01/08/18 15:05 Blood Pressure 114/50 L 01/08/18 15:05 Pulse Oximetry 99 01/08/18 15:05 GENERAL: Well-appearing, well-nourished and in no acute distress. HEENT: Head is scalp actually has some swelling all over midline. No erythema mild tenderness to touch no rash. Face is symmetric neck is supple no crepitations or depressions in the scalp. CARDIOVASCULAR: Regular rate and rhythm without murmurs, rubs or gallops. RESPIRATORY: Breath sounds equal bilaterally, no wheezes rales or rhonchi. ABDOMEN: Soft, nontender. Normoactive bowel sounds all 4 quadrants. No guarding or rebound. EXTREMITIES: Normal range of motion, no clubbing or edema. Neurovascularly intact NEUROLOGICAL: Alert and oriented x4.Normal gait and speech. Cranial nerves II through XII grossly intact. Good ppikil-dk-ledn, good raqv-xu-sifz, strength equal bilaterally, no dysarthria or aphasia, sensation in tact to soft touch bilaterally, no visual changes, no facial droop SKIN: Warm, dry, no laceration, no petechiae, no rashes or lesions. Course Orders Ordered: Discontinued Medications Aspirin (Aspirin Chew) 324 mg PO NOW ONE Stop: 01/08/18 15:11 Last Admin: 01/08/18 15:13 Dose: 324 mg Ketorolac Tromethamine (Toradol) 30 mg IV NOW ONE Stop: 01/08/18 18:02 Last Admin: 01/08/18 18:03 Dose: 30 mg Vital Signs - 8 hr 01/08/18 15:05 01/08/18 16:30 01/08/18 17:00 Temperature 98.2 F Pulse Rate 41 L 50 L Respiratory Rate 14 Blood Pressure 114/50 L Blood Pressure [Left Arm] 106/90 104/34 L Pulse Oximetry 99 97 98 01/08/18 17:30 Temperature Pulse Rate 45 L Respiratory Rate Blood Pressure Blood Pressure [Left Arm] 110/38 L Pulse Oximetry 96 MDM - Weakness Lab Data Attestation: I reviewed the patient's lab results. Result diagrams: 01/08/18 15:18 01/08/18 15:18 Lab Results 01/08/18 01/08/18 01/08/18 Range/Units 15:18 15:18 15:18 WBC 6.4 (4.5-11.0) X10^3/uL RBC 4.28 (4.0-5.2) X10^6/uL Hgb 12.3 (12.0-16.0) g/dL Hct 36.9 (36-46) % MCV 86.2 (80-100) fL MCH 28.7 (26-34) PG MCHC 33.3 (30-36) % RDW 15.2 H (11.6-14.8) % Plt Count 166 (150-400) X10^3/uL Neut % (Auto) 55.8 (50-75) % Lymph % (Auto) 32.1 (25-40) % [place] % (Auto) 9.9 (3-14) % Eos % (Auto) 0.8 L (2-4) % Baso % (Auto) 1.4 (0-2) % Neut # (Auto) 3600 (1476-6084) /uL PT 30.2 H (10.1-12.7) SECONDS INR 2.7 H (0.9-1.3) APTT 44 H D (26.4-36.2) SECONDS Sodium 143 (137-145) mmol/L Potassium 4.9 (3.4-5.1) mmol/L Chloride 113 H (98-107) mmol/L Carbon Dioxide 23 (22-32) mmol/L BUN 15 (7-17) mg/dL Creatinine 0.80 (0.52-1.04) mg/dL Estimated GFR > 60.0 (>60) mL/min BUN/Creatinine Ratio 18.8 (6-22) Glucose 69 L (80-110) mg/dL Calcium 9.1 (8.4-10.2) mg/dL Total Bilirubin 0.5 (0.2-1.3) mg/dL AST 32 (14-36) IU/L ALT 32 (9-52) IU/L Alkaline Phosphatase 85 (38-126) U/L Total Creatine Kinase 128 (30-135) U/L CK-MB (CK-2) 1.88 (<2.37) ng/mL CK-MB (CK-2) Rel Index 1.5 (1.5-5.0) % Troponin I < 0.012 (0.01-0.034) ng/mL Total Protein 7.2 (6.3-8.2) g/dL Albumin 4.0 (3.5-5.0) g/dL Globulin 3.2 (1.7-4.1) g/dL Albumin/Globulin Ratio 1.3 (1.0-2.8) Lipase 78 (23-300) U/L Imaging Data CT scan - head: Radiologist's impression: PROCEDURE: CT HEAD/BRAIN WO CON INDICATIONS: headache superior scalp swelling superfical TECHNIQUE: Noncontrast 4.5 mm thick angled axial sections acquired from the foramen magnum to the vertex, with coronal and sagittal reformats. For radiation dose reduction, the following was used: automated exposure control, adjustment of mA and/or kV according to patient size. COMPARISON: None. FINDINGS: Image quality: Excellent. CSF spaces: Basal cisterns are patent. No extra-axial fluid collections. The ventricles are symmetric in size and shape. Brain: No intracranial bleeds or masses. There is cerebral volume loss for age , with resultant ventricular and sulcal prominence. There are periventricular and deep white matter chronic small vessel ischemic changes. There is intracranial internal carotid artery atherosclerosis. Skull and face: Calvarium and visualized facial bones appear intact, without suspicious lesions. Sinuses: Visualized sinuses and mastoids are clear. IMPRESSION: No acute intracranial disease process. Dictated by: Radha Staples MD, PhD on 01/08/2018 at 17:54 Chest x-ray: Attestation: I personally reviewed and interpreted this imaging study as follows: Radiologist's impression: PROCEDURE: XR CHEST 1V INDICATIONS: chest pain TECHNIQUE: One view of the chest was acquired. COMPARISON: [facility], CHEST 1 VIEW, 06/04/2017, 13:12. [facility], CHEST 2 VIEW, 04/24/2017, 13:00. [facility], CHEST 2 VIEW, 04/15/2017 , 17:58. FINDINGS: Surgical changes and devices: Valve replacement at the middle third of the heart , previously present. Lungs and pleura: No pleural effusions or pneumothorax. Lungs are unchanged with a mild interstitial prominence previously present. Mediastinum: Mediastinal contours appear normal. Heart size is normal. Bones and chest wall: No suspicious bony lesions. Overlying soft tissues appear unremarkable. 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 Source of new pain is not found. Dictated by: Adam Zavala M.D. on 01/08/2018 at 16:29 MDM Narrative Medical decision making narrative: patient chronically has bradycardia she is asymptomatic. Heart rate is actually improved since she has been here. Head CT x-ray blood work all reassuring. She overall feels better and would like to go home. Discharge Plan Departure Patient Disposition: Home Clinical Impression: Local superficial swelling of head, Bradycardia Discharge Date/Time: 01/08/18 18:52 Interventions: ED Discharge Assessment Last Done: 01/08/18 18:52 Instructions: DI for Headache Activity Restrictions/Additional Instructions: *You have been diagnosed with headache, bradycardia *Continue to take medications as directed Tylenol, ibuprofen as directed if needed for headache and swelling *Follow up with your primary care provider in 2-3 days *Return to ER if you should have any new, worsening or concerning symptoms Prescriptions: No Action alprazolam 1 mg tablet 1 mg PO HS Qty: 30 RF: 0 oxycodone-acetaminophen 7.5-325 mg tablet 1 tab PO BID Qty: 60 RF: 0 warfarin 6 mg tablet 6 mg PO QDAY Qty: 34 RF: 0 aspirin 81 MG tablet,chewable 81 mg PO QDAY Qty: 0 RF: 0 diclofenac sodium [Voltaren] 1 % gel 1 tyrone Topical Q8H Qty: 100 RF: 2 loratadine 10 mg tablet 10 mg PO DAILY Qty: 30 RF: 3 levothyroxine [Synthroid] 50 mcg tablet 50 mcg PO QAM Qty: 90 RF: 0 simvastatin 40 mg tablet 40 mg PO HS Qty: 30 RF: 2 buspirone 15 mg tablet See Label Instructions .ROUTE .COMPLEX Qty: 15 RF: 2 albuterol sulfate [Ventolin HFA] 90 mcg/actuation HFA aerosol inhaler 2 puff INHALATION QID PRN (Reason: shortness of breath or wheezing) Qty: 8.5 RF: 1 nicotine 21 mg/24 hr patch 24 hour 1 patch Transdermal QAM Qty: 30 RF: 0 potassium chloride [Klor-Con M20] 20 mEq tablet,ER particles/crystals 20 meq PO AMCC Qty: 30 RF: 0 omeprazole 20 mg capsule,delayed release(DR/EC) 20 mg PO HS Qty: 30 RF: 0 citalopram 40 mg tablet 40 mg PO QDAY Qty: 30 RF: 0 gabapentin [Neurontin] 400 mg capsule 1,200 mg PO BID Qty: 180 RF: 0 furosemide 80 mg tablet 80 mg PO QDAY Qty: 30 RF: 0 orpmozdpgb-hswrcucrmiqis-mfts 50-325-40 mg tablet 1 - 2 tab PO Q4H PRN (Reason: headaches) Qty: 20 RF: 0 ondansetron 4 mg tablet,disintegrating 4 mg PO Q6H PRN (Reason: nausea and vomiting) Qty: 10 RF: 0 warfarin [Coumadin] 3 MG tablet 3 mg PO WEFR RF: 0 Referrals: Nancy Ba DO [Primary Care Provider] -
--- NOTE | 2018-01-08 17:19 | DI.CT.S_ITS ---
PROCEDURE: CT HEAD/BRAIN WO CON INDICATIONS: headache superior scalp swelling superfical TECHNIQUE: Noncontrast 4.5 mm thick angled axial sections acquired from the foramen magnum to the vertex, with coronal and sagittal reformats. For radiation dose reduction, the following was used: automated exposure control, adjustment of mA and/or kV according to patient size. COMPARISON: None. FINDINGS: Image quality: Excellent. CSF spaces: Basal cisterns are patent. No extra-axial fluid collections. The ventricles are symmetric in size and shape. Brain: No intracranial bleeds or masses. There is cerebral volume loss for age, with resultant ventricular and sulcal prominence. There are periventricular and deep white matter chronic small vessel ischemic changes. There is intracranial internal carotid artery atherosclerosis. Skull and face: Calvarium and visualized facial bones appear intact, without suspicious lesions. Sinuses: Visualized sinuses and mastoids are clear. IMPRESSION: No acute intracranial disease process. Dictated by: Radha Staples MD, PhD on 01/08/2018 at 17:54 Approved by: Radha Staples MD, PhD on 01/08/2018 at 17:55
[2018-01-08 17:30] VITALS: BP 110/38; PULSE 45; O2SAT 96
[2018-01-08] MEDS: KETOROLAC 60 MG/2 ML VIAL 30 MG IV (18:03)
[2018-01-08 18:47] VITALS: BP 123/57; PULSE 48; RESP 16; O2SAT 98
== END 2018-01-08 18:52 | disposition home or self-care (01) ==
PROVIDERS: Emergency Provider Emergency Medicine; Family Provider Family Medicine; PCP Family Medicine
DX: R22.0 Localized swelling, mass and lump, head (principal); R00.1 Bradycardia, unspecified
CPT/HCPCS: 36591; 70450; 71045; 80053; 82550; 82553; 83690; 84484; 85025; 85610; 85730; 93005; 93010; 96374; 99283; 99285; J1885

== ENCOUNTER → 2018-03-02 11:22 | Outpatient (CLI) | payer OTHER, MEDICAID, SELFPAY ==
[2018-03-02 12:15] LABS: Add Manual Diff / Slide Review NO; Basophils Percent Auto 1.3 % (0-2); Eosinophils Percent Auto 1.5 % (2-4); Hematocrit 39.6 % (36-46); Hemoglobin 13.1 g/dL (12.0-16.0); Lymphocytes Percent Auto 23.4 % (25-40); Mean Corpuscular HGB Conc 33.1 % (30-36); Mean Corpuscular Hemoglobin 29.1 PG (26-34); Mean Corpuscular Volume 88.1 fL (80-100); Monocytes Percent Auto 12.2 % (3-14); Neutrophils Absolute Auto 3900 /uL (3000-5900); Neutrophils Percent Auto 61.6 % (50-75); Platelet Count 167 X10^3/uL (150-400); Red Blood Cell Count 4.49 X10^6/uL (4.0-5.2); Red Cell Distribution Width 15.4 % (11.6-14.8); White Blood Cell Count 6.3 X10^3/uL (4.5-11.0)
[2018-03-02 12:24] LABS: Alanine Aminotransferase 29 IU/L (9-52); Albumin 4.2 g/dL (3.5-5.0); Albumin Globulin Ratio 1.3 (1.0-2.8); Alkaline Phosphatase 95 U/L (38-126); Amylase 99 U/L (30-110); Aspartate Aminotransferase 31 IU/L (14-36); BUN Creatinine Ratio 31.1 (6-22); Bilirubin Total 0.5 mg/dL (0.2-1.3); Blood Urea Nitrogen 28 mg/dL (7-17); Carbon Dioxide 29 mmol/L (22-32); Chloride 105 mmol/L (98-107); Cholesterol 151 mg/dL (140-199); Estimated Glomerular Filt Rate > 60.0 mL/min (>60); Globulin 3.3 g/dL (1.7-4.1); Glucose 83 mg/dL (80-110); HDL Cholesterol 54 mg/dL (40-60); HEMOLYSIS < 15 (0-50); LDL Cholesterol Calculated 74 mg/dL (<100); Lipase 108 U/L (23-300); Potassium 4.5 mmol/L (3.4-5.1); Sodium 142 mmol/L (137-145); Total Protein 7.5 g/dL (6.3-8.2); Triglycerides 113 mg/dL (35-150)
[2018-03-02 12:38] LABS: Prothrombin Time 82.9 SECONDS (10.1-12.7)
[2018-03-02 12:43] LABS: INR 7.3 (0.9-1.3)
[2018-03-02 12:52] LABS: Thyroid Stimulating Hormone 2.26 uIU/mL (0.47-4.68)
== END ==
PROVIDERS: Family Provider Family Medicine; PCP Family Medicine; Visit Provider Family Medicine
DX: N93.9 Abnormal uterine and vaginal bleeding, unspecified (principal); R79.1 Abnormal coagulation profile; Z51.81 Encounter for therapeutic drug level monitoring; Z79.01 Long term (current) use of anticoagulants; R10.11 Right upper quadrant pain; S30.814A Abrasion of vagina and vulva, initial encounter; T45.511A Poisoning by anticoagulants, accidental (unintentional), initial encounter
CPT/HCPCS: 36415; 80053; 80061; 82150; 83690; 84443; 85025; 85610

== ENCOUNTER 2018-05-17 20:31 | Emergency (ER) | payer OTHER, MEDICAID, SELFPAY ==
[2018-05-17 20:35] VITALS: BP 126/75; PULSE 72; RESP 18; TEMP 36.2; O2SAT 98
--- NOTE | 2018-05-17 20:36 | ED.FALL ---
HPI - Fall General Chief Complaint: Trauma Stated Complaint: FALL HIT HEAD BUMP ON RT SIDE OF HEAD Time Seen by Provider: 05/17/18 20:35 Source: patient Mode of arrival: ambulatory Limitations: no limitations History of Present Illness HPI Narrative: Patient is a 63-year-old female on Coumadin secondary to history of a prostatic mitral valve. She stated that at noon on the day of arrival to the emergency department that she fell at home. She states that she felt like she slipped on a piece of paper that was on the floor. She states that she did hit the right side of her head. She had no loss of consciousness. She stated that yesterday she was told that her INR was elevated and that she was to skip her dose of Coumadin today. She states that she came into the emergency department because she noticed a bump on the right side of her head. She reports no other injuries from the fall. Related Data Home Medications Medication Instructions Recorded Confirmed warfarin [Coumadin] 3 mg PO WEFR 09/22/17 03/02/18 Previous Rx's Medication Instructions Recorded diclofenac sodium [Voltaren] 1 tyrone TOPICAL Q8H #100 gm 07/13/17 ondansetron 4 mg PO Q6H PRN #10 tab 09/22/17 albuterol sulfate HFA 90 2 puff INHALATION QID PRN #8.5 gram 12/14/17 mcg/actuation aerosol inhaler nicotine 21 mg/24 hr daily 1 patch TRANSDERMAL QAM #30 patch 12/21/17 transdermal patch llawnhosfq-xneqhwyfxjnjp-mrppgrmh 1 - 2 tab PO Q4H PRN #20 tab 01/05/18 50 mg-325 mg-40 mg tablet buspirone 15 mg tablet 15 mg PO BID #60 tab 01/26/18 levothyroxine [Synthroid] 50 mcg PO QAM #90 tab 01/27/18 loratadine 10 mg tablet 10 mg PO DAILY #30 tab 03/05/18 simvastatin 40 mg tablet 40 mg PO HS #30 tab 03/05/18 furosemide 80 mg PO QDAY #30 tab 04/09/18 omeprazole 20 mg capsule,delayed 20 mg PO HS #30 cap 04/09/18 release potassium chloride ER 20 mEq 20 meq PO AMCC #30 tab 04/09/18 tablet,extended release(part/cryst) gabapentin 400 mg capsule 1,200 mg PO BID #180 cap 04/12/18 warfarin 5 mg tablet 5 mg PO DAILY #30 tab 04/12/18 cyclobenzaprine 10 mg tablet 10 mg PO BEDTIME #30 tab 04/19/18 oxycodone-acetaminophen 7.5 mg-325 1 tab PO BID #60 tab 04/19/18 mg tablet alprazolam 1 mg tablet 0.5 mg PO HS #15 tab 04/23/18 aspirin 81 mg chewable tablet 81 mg PO QDAY #90 tab 04/23/18 citalopram 40 mg tablet 40 mg PO QDAY #30 05/17/18 Allergies Allergy/AdvReac Type Severity Reaction Status Date / Time adhesive tape [ADHESIVE TAPE] Allergy Unknown RASH Verified 03/02/18 10:10 clindamycin [CLINDAMYCIN] Allergy Unknown RASH Verified 03/02/18 10:10 Penicillins [PENICILLINS] Allergy Unknown RASH Verified 03/02/18 10:10 phytonadione (vitamin K1) Allergy Unknown RASH Verified 03/02/18 10:10 [PHYTONADIONE (VITAMIN K1)] prochlorperazine Allergy Unknown AKATHISIA Verified 03/02/18 10:10 [PROCHLORPERAZINE] morphine [MORPHINE] AdvReac Unknown NAUSEA Verified 03/02/18 10:10 VOMITING Review of Systems Constitutional Denies headache(s) Eyes Denies change in vision and Denies diplopia ENT Ears, Nose, Mouth, and Throat: Denies headache(s), Denies neck pain and Denies sore throat Cardiovascular Denies chest pain, Denies palpitations and Denies dyspnea Respiratory Denies dyspnea Gastrointestinal Gastrointestinal: Denies abdominal pain, Denies nausea and Denies vomiting Musculoskeletal Denies back pain, Denies myalgias, Denies arthralgias and Denies neck pain Integumentary/Breasts Denies lesions and Denies rash Comments: Bump on the right side of her head Neurologic Denies behavioral changes and Denies headache(s) Psychiatric Denies behavioral changes Endocrine Denies palpitations Hematologic/Lymphatic Comments: On Coumadin Exam Initial Vital Signs Initial Vital Signs: Vital Signs Temperature 97.2 F L 05/17/18 20:35 Pulse Rate 72 05/17/18 20:35 Respiratory Rate 18 05/17/18 20:35 Blood Pressure 126/75 05/17/18 20:35 Pulse Oximetry 98 05/17/18 20:35 Const General: cooperative, healthy appearing, comfortable, well developed, well groomed and No acute distress Orientation: alert, awake and oriented x3 [facility] Head: other (Patient with a 1 cm bump on the right parietal aspect of her scalp. No overlying erythema. No depressed skull fracture fell.) Ears: hearing grossly normal bilaterally Nose: external nose normal Face and sinus: normal facial exam Eyes Pupils: PERRL EOM: EOM intact bilaterally Resp Effort & Inspection: normal respiratory effort Auscultation: clear to auscultation bilaterally Cardio Rate: regular rate Heart Sounds: murmur Pulses: radial pulses present GI Inspection: non-distended Palpation: soft Back/Spine/Pelvis Cervical Spine: No collar present, No pain with cervical ROM, No cervical spinal tenderness and No step off deformity Skin Lesions: no lesions Rashes: no rashes Neuro General: alert, awake and oriented x3 Cognition: normal cognition Speech: speech normal Motor: muscle tone normal throughout Sensory Exam: no sensory deficits noted Extrem General: normal to inspection and capillary refill normal Psych Appearance: grossly normal and well kempt [facility] Family History Brother Age: 56 RA (rheumatoid arthritis) COPD (chronic obstructive pulmonary disease) Mother Breast cancer Father No problems noted. Sister Cancer Social History Smoking Status: Current every day smoker alcohol intake: never substance use type: marijuana (On occasion to help calm down. ) Scores Nexus Score for C-Spine Focal Neurologic deficit present: No Midline spinal tenderness present: No Altered level of conciousness present: No Intoxication present: No Distracting Injury Present: No Nexus Criteria for C-spine: 0 Course Orders Ordered: ED Orders 05/17/18 20:37 CT head/brain wo con Stat EKG-12 Lead Stat 05/17/18 21:00 Basic Metabolic Panel Stat Complete Blood Count AUTO DIFF Stat Partial Thromboplastin Time Stat Prothrombin Time INR Stat Discontinued Medications Acetaminophen (Tylenol) 650 mg PO NOW ONE Stop: 05/17/18 21:28 Last Admin: 05/17/18 21:56 Dose: 650 mg Vital Signs - 8 hr 05/17/18 20:35 05/17/18 21:18 05/17/18 22:28 Temperature 97.2 F L Pulse Rate 72 59 L 57 L Respiratory Rate 18 14 15 Blood Pressure 126/75 Blood Pressure [Left Arm] 110/57 L 124/62 Pulse Oximetry 98 98 98 05/17/18 22:39 Temperature 97.2 F L Pulse Rate 72 Respiratory Rate 16 Blood Pressure 122/54 L Blood Pressure [Left Arm] Pulse Oximetry 100 - Fall Lab Data Attestation: I reviewed the patient's lab results. Result diagrams: 05/17/18 21:00 05/17/18 21:00 Lab Results 05/17/18 05/17/18 05/17/18 Range/Units 21:00 21:00 21:00 WBC 10.0 (4.5-11.0) X10^3/uL RBC 4.04 (4.0-5.2) X10^6/uL Hgb 11.8 L (12.0-16.0) g/dL Hct 35.5 L (36-46) % MCV 87.9 (80-100) fL MCH 29.2 (26-34) PG MCHC 33.2 (30-36) % RDW 14.8 (11.6-14.8) % Plt Count 145 L (150-400) X10^3/uL Neut % (Auto) 71.4 (50-75) % Lymph % (Auto) 18.4 L (25-40) % [place] % (Auto) 9.1 (3-14) % Eos % (Auto) 0.2 L (2-4) % Baso % (Auto) 0.9 (0-2) % Neut # (Auto) 7100 H (1639-3919) /uL PT 69.8 H (10.1-12.7) SECONDS INR 5.9 H* (0.9-1.3) APTT 58 H D (26.4-36.2) SECONDS Sodium 141 (137-145) mmol/L Potassium 4.0 (3.4-5.1) mmol/L Chloride 109 H (98-107) mmol/L Carbon Dioxide 22 (22-32) mmol/L BUN 19 H (7-17) mg/dL Creatinine 1.10 H (0.52-1.04) mg/dL Estimated GFR 50.5 L (>60) mL/min BUN/Creatinine Ratio 17.3 (6-22) Glucose 74 L (80-110) mg/dL Calcium 9.1 (8.4-10.2) mg/dL Imaging Data CT scan - head: Radiologist's impression: PROCEDURE: CT HEAD/BRAIN WO CON INDICATIONS: fall on coumadin TECHNIQUE: Noncontrast 4.5 mm thick angled axial sections acquired from the foramen magnum to the vertex, with coronal and sagittal reformats. For radiation dose reduction, the following was used: automated exposure control, adjustment of mA and/or kV according to patient size. COMPARISON: [facility], CT, CT HEAD/BRAIN WO CON, 01/08/2018, 17:24. FINDINGS: Image quality: Excellent. CSF spaces: Basal cisterns are patent. No extra-axial fluid collections. Ventricles are normal in size and shape. Brain: No midline shift. No intracranial masses or hemorrhage. [place]-white matter interface is normal. Skull and face: Calvarium and visualized facial bones are intact, without suspicious lesions. Sinuses: Visualized sinuses and mastoids are clear. IMPRESSION: 1. No acute intracranial process. Dictated by: Sharon Wilde M.D. on 05/17/2018 at 21:10 Approved by: Sharon Wilde M.D. on 05/17/2018 at 21:11 ECG Data Attestation: I personally reviewed and interpreted this ECG as follows: Prior ECG tracings: not available for review Interpretation: Sinus bradycardia Ventricular rate of 51 Normal axis Normal QRS Normal QTC MDM Narrative Medical decision making narrative: Patient is alert and oriented x3. Head CT shows no signs of intracranial bleed. Her fall was greater than 6 hr after presentation here to the emergency department. She was supratherapeutic on her INR. She was previously instructed to skip her Coumadin dose this evening and also tomorrow. She states she does not know what she is supposed to do after that. No other injuries were reported or found on her exam from the fall. It does sound like a mechanical fall. Hold on further workup for now. Informed patient that she needs to contact her primary care doctor's office to get further instructions on when she should restart her Coumadin in a what does she should started on when she should get her INR recheck. She was given return precautions. She expressed understanding and agreement with plan. Discharge Plan Departure Patient Disposition: Home Clinical Impression: Contusion of scalp, Supratherapeutic INR, Fall Discharge Date/Time: 05/17/18 22:39 Interventions: ED Discharge Assessment Last Done: 05/17/18 22:39 Instructions: How to Prevent Falls Activity Restrictions/Additional Instructions: I do recommend you skip your Coumadin dose this evening. I also recommend that you contact your primary doctor's office tomorrow to discuss further medication changes in when you need to get in to have your Coumadin levels checked again. Return to the emergency department for any new or worsening symptoms Prescriptions: No Action warfarin 5 mg tablet 5 mg PO DAILY Qty: 30 RF: 0 diclofenac sodium [Voltaren] 1 % gel 1 tyrone Topical Q8H Qty: 100 RF: 2 albuterol sulfate [Ventolin HFA] 90 mcg/actuation HFA aerosol inhaler 2 puff INHALATION QID PRN (Reason: shortness of breath or wheezing) Qty: 8.5 RF: 1 nicotine 21 mg/24 hr patch 24 hour 1 patch Transdermal QAM Qty: 30 RF: 0 ejzjqonzpr-guboqiksqzlfj-xhdw 50-325-40 mg tablet 1 - 2 tab PO Q4H PRN (Reason: headaches) Qty: 20 RF: 0 buspirone 15 mg tablet 15 mg PO BID Qty: 60 RF: 2 levothyroxine [Synthroid] 50 mcg tablet 50 mcg PO QAM Qty: 90 RF: 0 simvastatin 40 mg tablet 40 mg PO HS Qty: 30 RF: 2 loratadine 10 mg tablet 10 mg PO DAILY Qty: 30 RF: 3 potassium chloride [Klor-Con M20] 20 mEq tablet,ER particles/crystals 20 meq PO AMCC Qty: 30 RF: 2 omeprazole 20 mg capsule,delayed release(DR/EC) 20 mg PO HS Qty: 30 RF: 2 furosemide 80 mg tablet 80 mg PO QDAY Qty: 30 RF: 2 gabapentin [Neurontin] 400 mg capsule 1,200 mg PO BID Qty: 180 RF: 0 cyclobenzaprine 10 mg tablet 10 mg PO BEDTIME Qty: 30 RF: 0 oxycodone-acetaminophen 7.5-325 mg tablet 1 tab PO BID Qty: 60 RF: 0 alprazolam 1 mg tablet 0.5 mg PO HS Qty: 15 RF: 0 aspirin 81 mg tablet,chewable 81 mg PO QDAY Qty: 90 RF: 0 citalopram 40 mg tablet 40 mg PO QDAY Qty: 30 RF: 3 ondansetron 4 mg tablet,disintegrating 4 mg PO Q6H PRN (Reason: nausea and vomiting) Qty: 10 RF: 0 warfarin [Coumadin] 3 MG tablet 3 mg PO WEFR RF: 0
[2018-05-17 21:13] LABS: Add Manual Diff / Slide Review NO; Basophils Percent Auto 0.9 % (0-2); Eosinophils Percent Auto 0.2 % (2-4); Hematocrit 35.5 % (36-46); Hemoglobin 11.8 g/dL (12.0-16.0); Lymphocytes Percent Auto 18.4 % (25-40); Mean Corpuscular HGB Conc 33.2 % (30-36); Mean Corpuscular Hemoglobin 29.2 PG (26-34); Mean Corpuscular Volume 87.9 fL (80-100); Monocytes Percent Auto 9.1 % (3-14); Neutrophils Absolute Auto 7100 /uL (1500-7000); Neutrophils Percent Auto 71.4 % (50-75); Platelet Count 145 X10^3/uL (150-400); Red Blood Cell Count 4.04 X10^6/uL (4.0-5.2); Red Cell Distribution Width 14.8 % (11.6-14.8)
[2018-05-17 21:18] VITALS: BP 110/57; PULSE 59; RESP 14; O2SAT 98
[2018-05-17 21:19] LABS: Prothrombin Time 69.8 SECONDS (10.1-12.7)
[2018-05-17 21:22] LABS: PTT Partial Thromboplastin Tim 58 SECONDS (26.4-36.2)
[2018-05-17 21:24] LABS: BUN Creatinine Ratio 17.3 (6-22); Blood Urea Nitrogen 19 mg/dL (7-17); Calcium 9.1 mg/dL (8.4-10.2); Carbon Dioxide 22 mmol/L (22-32); Chloride 109 mmol/L (98-107); Estimated Glomerular Filt Rate 50.5 mL/min (>60); Glucose 74 mg/dL (80-110); HEMOLYSIS < 15 (0-50); Sodium 141 mmol/L (137-145)
[2018-05-17] MEDS: ACETAMINOPHEN 325 MG TABLET 650 MG PO (21:56)
[2018-05-17 22:00] LABS: INR 5.9 (0.9-1.3)
[2018-05-17 22:28] VITALS: BP 124/62; PULSE 57; RESP 15; O2SAT 98
[2018-05-17 22:39] VITALS: BP 122/54; PULSE 72; RESP 16; TEMP 36.2; O2SAT 100
== END 2018-05-17 22:39 | disposition home or self-care (01) ==
PROVIDERS: Emergency Provider Emergency Medicine; Family Provider Family Medicine; PCP Family Medicine
DX: S00.03XA Contusion of scalp, initial encounter (principal); W19.XXXA Unspecified fall, initial encounter; R79.1 Abnormal coagulation profile
CPT/HCPCS: 36591; 70450; 80048; 85025; 85610; 85730; 93005; 93041; 99283; 99285

== ENCOUNTER 2018-05-18 18:45 | Emergency (ER) | payer OTHER, MEDICAID, SELFPAY ==
[2018-05-18 18:48] VITALS: BMI 28.3
--- NOTE | 2018-05-18 18:51 | DI.RAD.S_ITS ---
PROCEDURE: XR FINGER LT MIN 2V INDICATIONS: injury pain, 4TH DIGIT TECHNIQUE: AP hand, 2 views of the fourth finger(s) acquired. COMPARISON: None. FINDINGS: Bones: Moderately displaced and angulated comminuted fracture of the mid shaft of the middle phalanx of the fourth digit. Articular surface extension to the proximal interphalangeal joint. No suspicious bony lesions. Soft tissues: No suspicious soft tissue calcifications. IMPRESSION: Fourth digit fracture. Dictated by: Arleth Barton M.D. on 05/18/2018 at 19:22 Approved by: Arleth Barton M.D. on 05/18/2018 at 19:23
[2018-05-18 18:52] VITALS: BP 125/90; PULSE 75; RESP 18; TEMP 36.7; O2SAT 95; BMI 28.3
[2018-05-18] MEDS: OXYCODONE/ACETAMINOPHEN 5/325 TABLET 1 TAB PO (19:24)
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
[2018-05-18 20:14] VITALS: BP 115/92; PULSE 54; RESP 14; O2SAT 97
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
[2018-05-18] MEDS: CODEINE/APAP 30/300 PREPACK 1 BOTTLE MISC (20:56)
== END 2018-05-18 21:06 | disposition home or self-care (01) ==
PROVIDERS: Emergency Provider Emergency Medicine; Family Provider Family Medicine; PCP Family Medicine
DX: S62.609A Fracture of unspecified phalanx of unspecified finger, initial encounter for closed fracture (principal)
CPT/HCPCS: 73140; 99282; 99283

== ENCOUNTER 2018-05-19 01:46 | Emergency (ER) | payer MEDICAID, SELFPAY ==
[2018-05-19 02:01] VITALS: BP 146/80; PULSE 70; RESP 16; TEMP 36.6; O2SAT 98
--- NOTE | 2018-05-19 02:17 | ED.UPPEXIN ---
HPI - Extremity Injury (Upper) General Chief Complaint: Extremity Injury, Upper Stated Complaint: LEFT RING FINGER PAIN Time Seen by Provider: 05/19/18 02:11 Source: patient Mode of arrival: ambulatory Limitations: no limitations History of Present Illness HPI narrative: 63-year-old female who I saw the beginning of my shift for a left ring finger fracture performed a hematoma block with reduction and splint placement here for evaluation because she was having continued pain. She states she was taking her pain medication. Related Data Home Medications Medication Instructions Recorded Confirmed warfarin [Coumadin] 3 mg PO WEFR 09/22/17 03/02/18 Previous Rx's Medication Instructions Recorded diclofenac sodium [Voltaren] 1 tyrone TOPICAL Q8H #100 gm 07/13/17 ondansetron 4 mg PO Q6H PRN #10 tab 09/22/17 albuterol sulfate HFA 90 2 puff INHALATION QID PRN #8.5 gram 12/14/17 mcg/actuation aerosol inhaler nicotine 21 mg/24 hr daily 1 patch TRANSDERMAL QAM #30 patch 12/21/17 transdermal patch ccqcicpwai-zfwyppgdthdhj-veqvjfzf 1 - 2 tab PO Q4H PRN #20 tab 01/05/18 50 mg-325 mg-40 mg tablet loratadine 10 mg tablet 10 mg PO DAILY #30 tab 03/05/18 simvastatin 40 mg tablet 40 mg PO HS #30 tab 03/05/18 furosemide 80 mg PO QDAY #30 tab 04/09/18 omeprazole 20 mg capsule,delayed 20 mg PO HS #30 cap 04/09/18 release potassium chloride ER 20 mEq 20 meq PO AMCC #30 tab 04/09/18 tablet,extended release(part/cryst) aspirin 81 mg chewable tablet 81 mg PO QDAY #90 tab 04/23/18 buspirone 15 mg tablet 15 mg PO BID #60 tab 05/18/18 cyclobenzaprine 10 mg tablet 10 mg PO BEDTIME #30 tab 05/18/18 gabapentin 400 mg capsule 1,200 mg PO BID #180 cap 05/18/18 levothyroxine 50 mcg tablet 50 mcg PO QAM #90 tab 05/18/18 oxycodone-acetaminophen 7.5 mg-325 1 tab PO BID #60 tab 05/18/18 mg tablet trazodone 50 mg tablet 50 mg PO .HS #30 tab 05/18/18 warfarin 3 mg tablet 3 mg PO DAILY #30 tab 05/18/18 Allergies Allergy/AdvReac Type Severity Reaction Status Date / Time adhesive tape [ADHESIVE TAPE] Allergy Unknown RASH Verified 05/18/18 18:48 clindamycin [CLINDAMYCIN] Allergy Unknown RASH Verified 05/18/18 18:48 Penicillins [PENICILLINS] Allergy Unknown RASH Verified 05/18/18 18:48 phytonadione (vitamin K1) Allergy Unknown RASH Verified 05/18/18 18:48 [PHYTONADIONE (VITAMIN K1)] prochlorperazine Allergy Unknown AKATHISIA Verified 05/18/18 18:48 [PROCHLORPERAZINE] morphine [MORPHINE] AdvReac Unknown NAUSEA Verified 05/18/18 18:48 VOMITING Review of Systems Musculoskeletal Comments: Pain left ring finger Integumentary/Breasts Comments: More bruising left ring finger Neurologic Comments: Tingling left ring finger PFSH Family History Brother Age: 56 RA (rheumatoid arthritis) COPD (chronic obstructive pulmonary disease) Mother Breast cancer Father No problems noted. Sister Cancer Social History Smoking Status: Current every day smoker alcohol intake: never substance use type: marijuana (On occasion to help calm down. ) Exam Initial Vital Signs Initial Vital Signs: Vital Signs Temperature 97.8 F 05/19/18 02:01 Pulse Rate 70 05/19/18 02:01 Respiratory Rate 16 05/19/18 02:01 Blood Pressure 146/80 H 05/19/18 02:01 Pulse Oximetry 98 05/19/18 02:01 Resp Effort & Inspection: normal respiratory effort Cardio Pulses: radial pulses present on the left Skin Other: Bruising circumferential from the MCP joint to the tip of the left ring finger Neuro Other: Sensation intact to light touch left ring finger Extrem General: capillary refill normal Other: Tenderness to palpation between the MCP and DIP joint left ring finger Psych Appearance: grossly normal and well kempt Course Vital Signs - 8 hr 05/19/18 02:01 05/19/18 02:21 Temperature 97.8 F 97.8 F Pulse Rate 70 70 Respiratory Rate 16 16 Blood Pressure 146/80 H 146/80 H Pulse Oximetry 98 98 MDM - Extremity Injury (Upper) MDM Narrative Medical decision making narrative: Patient splint was loosened and she stated that this did improve her symptoms. I also placed tape over the end of the aluminum splint where she states it was hurting the palm of her hand. Patient was neurovascularly intact. Has more bruising however she is also on Coumadin and does have a fracture. I informed her that she needed to expect some discomfort. Informed her to take the medication that we gave her during her last visit today. The splint was replaced. She again was given return precautions and expressed understanding and agreement with plan. Discharge Plan Departure Patient Disposition: Home Clinical Impression: Finger fracture, left Discharge Date/Time: 05/19/18 02:40 Interventions: ED Discharge Assessment Last Done: 05/19/18 02:40 Instructions: DI for Finger Fracture Activity Restrictions/Additional Instructions: Recommend that you continue to take the pain medication as directed. Keep your finger elevated. Expect some discomfort because you did break your finger. Remember to contact her primary care doctor for follow-up. Prescriptions: No Action diclofenac sodium [Voltaren] 1 % gel 1 tyrone Topical Q8H Qty: 100 RF: 2 albuterol sulfate [Ventolin HFA] 90 mcg/actuation HFA aerosol inhaler 2 puff INHALATION QID PRN (Reason: shortness of breath or wheezing) Qty: 8.5 RF: 1 nicotine 21 mg/24 hr patch 24 hour 1 patch Transdermal QAM Qty: 30 RF: 0 rtrvlxqumr-rwzlzfhuxpphq-zgzi 50-325-40 mg tablet 1 - 2 tab PO Q4H PRN (Reason: headaches) Qty: 20 RF: 0 simvastatin 40 mg tablet 40 mg PO HS Qty: 30 RF: 2 loratadine 10 mg tablet 10 mg PO DAILY Qty: 30 RF: 3 potassium chloride [Klor-Con M20] 20 mEq tablet,ER particles/crystals 20 meq PO AMCC Qty: 30 RF: 2 omeprazole 20 mg capsule,delayed release(DR/EC) 20 mg PO HS Qty: 30 RF: 2 furosemide 80 mg tablet 80 mg PO QDAY Qty: 30 RF: 2 aspirin 81 mg tablet,chewable 81 mg PO QDAY Qty: 90 RF: 0 buspirone 15 mg tablet 15 mg PO BID Qty: 60 RF: 2 levothyroxine [Synthroid] 50 mcg tablet 50 mcg PO QAM Qty: 90 RF: 0 cyclobenzaprine 10 mg tablet 10 mg PO BEDTIME Qty: 30 RF: 0 gabapentin [Neurontin] 400 mg capsule 1,200 mg PO BID Qty: 180 RF: 0 warfarin 3 mg tablet 3 mg PO DAILY Qty: 30 RF: 0 oxycodone-acetaminophen 7.5-325 mg tablet 1 tab PO BID Qty: 60 RF: 0 trazodone 50 mg tablet 50 mg PO .HS Qty: 30 RF: 0 ondansetron 4 mg tablet,disintegrating 4 mg PO Q6H PRN (Reason: nausea and vomiting) Qty: 10 RF: 0 warfarin [Coumadin] 3 MG tablet 3 mg PO WEFR RF: 0
[2018-05-19 02:21] VITALS: BP 146/80; PULSE 70; RESP 16; TEMP 36.6; O2SAT 98
--- NOTE | 2018-05-19 03:20 | PC.NURSE ---
Splint reapplied by Dr Russell. CMS intact.
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
== END 2018-05-19 02:40 | disposition home or self-care (01) ==
PROVIDERS: Emergency Provider Emergency Medicine; Family Provider Family Medicine; PCP Family Medicine
DX: S62.605A Fracture of unspecified phalanx of left ring finger, initial encounter for closed fracture (principal); M79.645 Pain in left finger(s)
CPT/HCPCS: 99282

== ENCOUNTER 2018-05-19 21:44 | Emergency (ER) | payer OTHER, MEDICAID, SELFPAY ==
[2018-05-19 22:14] VITALS: BP 153/84; PULSE 88; RESP 20; TEMP 36.7; O2SAT 98
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
[2018-05-20 06:24] VITALS: BP 148/79; PULSE 80; RESP 18; O2SAT 99
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
== END 2018-05-20 06:25 | disposition home or self-care (01) ==
LOC: ED 05-20 00:28 → AC 05-20 01:20 → ED 05-20 01:26
PROVIDERS: Emergency Provider Emergency Medicine; Family Provider Family Medicine; PCP Family Medicine
DX: M79.645 Pain in left finger(s) (principal)
CPT/HCPCS: 99282

== ENCOUNTER 2018-05-21 16:31 | Emergency (ER) | payer OTHER, MEDICAID, SELFPAY ==
[2018-05-21 16:36] VITALS: BP 177/80; PULSE 67; RESP 18; TEMP 35.9; O2SAT 97; BMI 22.4
--- NOTE | 2018-05-21 18:01 | ED_ITS ---
HPI - Extremity Injury (Upper) <Uma Marina PA-C - Last Filed: 05/21/18 22:05> General Chief Complaint: Extremity Injury, Upper Stated Complaint: Needs splint on finger Time Seen by Provider: 05/21/18 18:14 Source: patient Mode of arrival: ambulatory Limitations: no limitations History of Present Illness HPI narrative: This 63-year-old female returns to ED due to losing her left ring finger splint again. She states that they tend to just fall off, this 1 was too tight and she came back here and had it loosened, then it also fell off. She states that she has bumped the finger a couple of times and it is quite sore, so not sure whether she re-injured it. She denies any other new complaints Related Data Home Medications Medication Instructions Recorded Confirmed warfarin [Coumadin] 3 mg PO WEFR 09/22/17 03/02/18 Previous Rx's Medication Instructions Recorded diclofenac sodium [Voltaren] 1 tyrone TOPICAL Q8H #100 gm 07/13/17 ondansetron 4 mg PO Q6H PRN #10 tab 09/22/17 albuterol sulfate HFA 90 2 puff INHALATION QID PRN #8.5 gram 12/14/17 mcg/actuation aerosol inhaler nicotine 21 mg/24 hr daily 1 patch TRANSDERMAL QAM #30 patch 12/21/17 transdermal patch qosnymxcqx-bfyyirqmzyqsc-xcklesmr 1 - 2 tab PO Q4H PRN #20 tab 01/05/18 50 mg-325 mg-40 mg tablet loratadine 10 mg tablet 10 mg PO DAILY #30 tab 03/05/18 simvastatin 40 mg tablet 40 mg PO HS #30 tab 03/05/18 furosemide 80 mg PO QDAY #30 tab 04/09/18 omeprazole 20 mg capsule,delayed 20 mg PO HS #30 cap 04/09/18 release potassium chloride ER 20 mEq 20 meq PO AMCC #30 tab 04/09/18 tablet,extended release(part/cryst) aspirin 81 mg chewable tablet 81 mg PO QDAY #90 tab 04/23/18 buspirone 15 mg tablet 15 mg PO BID #60 tab 05/18/18 cyclobenzaprine 10 mg tablet 10 mg PO BEDTIME #30 tab 05/18/18 gabapentin 400 mg capsule 1,200 mg PO BID #180 cap 05/18/18 levothyroxine 50 mcg tablet 50 mcg PO QAM #90 tab 05/18/18 oxycodone-acetaminophen 7.5 mg-325 1 tab PO BID #60 tab 05/18/18 mg tablet trazodone 50 mg tablet 50 mg PO .HS #30 tab 05/18/18 warfarin 3 mg tablet 3 mg PO DAILY #30 tab 05/18/18 Allergies Allergy/AdvReac Type Severity Reaction Status Date / Time adhesive tape [ADHESIVE TAPE] Allergy Unknown RASH Verified 05/18/18 18:48 clindamycin [CLINDAMYCIN] Allergy Unknown RASH Verified 05/18/18 18:48 Penicillins [PENICILLINS] Allergy Unknown RASH Verified 05/18/18 18:48 phytonadione (vitamin K1) Allergy Unknown RASH Verified 05/18/18 18:48 [PHYTONADIONE (VITAMIN K1)] prochlorperazine Allergy Unknown AKATHISIA Verified 05/18/18 18:48 [PROCHLORPERAZINE] morphine [MORPHINE] AdvReac Unknown NAUSEA Verified 05/18/18 18:48 VOMITING Review of Systems <Uma Marina PA-C - Last Filed: 05/21/18 22:05> Review of Systems ROS Unobtainable: All systems reviewed & are unremarkable except as noted in HPI and below Exam <Uma Marina PA-C - Last Filed: 05/21/18 22:05> Narrative Exam Narrative: GENERAL APPEARANCE: Patient sitting comfortably, in no distress. LUNGS: Clear to auscultation bilaterally. HEART: Rate and rhythm regular without murmur, normal S1 and S2, no S3 or S4. MUSCULOSKELETAL: Left hand joints are nodular. Left ring finger is moderately edematous. She is tender without finger as well as the distal 3rd and 4th metacarpals. There is no effusion over the left hand DERMATOLOGIC: Left ring finger there is a blister on the anterior surface, and ecchymoses throughout Initial Vital Signs Initial Vital Signs: Vital Signs Temperature 96.6 F L 05/21/18 16:36 Pulse Rate 67 05/21/18 16:36 Respiratory Rate 18 05/21/18 16:36 Blood Pressure 177/80 H 05/21/18 16:36 Pulse Oximetry 97 05/21/18 16:36 <Kris Ogden DO - Last Filed: 05/21/18 23:23> Initial Vital Signs Initial Vital Signs: Vital Signs Temperature 96.6 F L 05/21/18 16:36 Pulse Rate 67 05/21/18 16:36 Respiratory Rate 18 05/21/18 16:36 Blood Pressure 177/80 H 05/21/18 16:36 Pulse Oximetry 97 05/21/18 16:36 Course <Uma Marina PA-C - Last Filed: 05/21/18 22:05> Orders Ordered: ED Orders 05/21/18 18:19 XR hand LT min 3V Stat Vital Signs - 8 hr 05/21/18 16:36 05/21/18 18:49 05/21/18 19:40 Temperature 96.6 F L Pulse Rate 67 60 Pulse Rate [Left Radial] 66 Respiratory Rate 18 16 Blood Pressure 177/80 H 152/80 H Pulse Oximetry 97 100 <Kris Ogden DO - Last Filed: 05/21/18 23:23> Orders Ordered: ED Orders 05/21/18 18:19 XR hand LT min 3V Stat Vital Signs - 8 hr 05/21/18 16:36 05/21/18 18:49 05/21/18 19:40 Temperature 96.6 F L Pulse Rate 67 60 Pulse Rate [Left Radial] 66 Respiratory Rate 18 16 Blood Pressure 177/80 H 152/80 H Pulse Oximetry 97 100 Discharge Plan Departure Patient Disposition: Home Clinical Impression: Closed fracture of phalanx of ring finger Discharge Date/Time: 05/21/18 19:27 Interventions: ED Discharge Assessment Last Done: 05/21/18 19:40 Instructions: DI for Finger Fracture Activity Restrictions/Additional Instructions: The alignment in your finger bones appears improved on today's xray, however you need to keep your splint on 01/12 to help the bone heal/protect from further injury. If you lose the splint again, please get another 1 from the drugstore ( the dressing that we used is available there as well) so that you can replace it quickly to reduce the risk of injury. Prescriptions: No Action diclofenac sodium [Voltaren] 1 % gel 1 tyrone Topical Q8H Qty: 100 RF: 2 albuterol sulfate [Ventolin HFA] 90 mcg/actuation HFA aerosol inhaler 2 puff INHALATION QID PRN (Reason: shortness of breath or wheezing) Qty: 8.5 RF: 1 nicotine 21 mg/24 hr patch 24 hour 1 patch Transdermal QAM Qty: 30 RF: 0 vhbyoypdoq-vwekszumxqjqe-tyng 50-325-40 mg tablet 1 - 2 tab PO Q4H PRN (Reason: headaches) Qty: 20 RF: 0 simvastatin 40 mg tablet 40 mg PO HS Qty: 30 RF: 2 loratadine 10 mg tablet 10 mg PO DAILY Qty: 30 RF: 3 potassium chloride [Klor-Con M20] 20 mEq tablet,ER particles/crystals 20 meq PO AMCC Qty: 30 RF: 2 omeprazole 20 mg capsule,delayed release(DR/EC) 20 mg PO HS Qty: 30 RF: 2 furosemide 80 mg tablet 80 mg PO QDAY Qty: 30 RF: 2 aspirin 81 mg tablet,chewable 81 mg PO QDAY Qty: 90 RF: 0 buspirone 15 mg tablet 15 mg PO BID Qty: 60 RF: 2 levothyroxine [Synthroid] 50 mcg tablet 50 mcg PO QAM Qty: 90 RF: 0 cyclobenzaprine 10 mg tablet 10 mg PO BEDTIME Qty: 30 RF: 0 gabapentin [Neurontin] 400 mg capsule 1,200 mg PO BID Qty: 180 RF: 0 warfarin 3 mg tablet 3 mg PO DAILY Qty: 30 RF: 0 oxycodone-acetaminophen 7.5-325 mg tablet 1 tab PO BID Qty: 60 RF: 0 trazodone 50 mg tablet 50 mg PO .HS Qty: 30 RF: 0 ondansetron 4 mg tablet,disintegrating 4 mg PO Q6H PRN (Reason: nausea and vomiting) Qty: 10 RF: 0 warfarin [Coumadin] 3 MG tablet 3 mg PO WEFR RF: 0 Referrals: Nancy Ba DO [Primary Care Provider] - <Kris Ogden DO - Last Filed: 05/21/18 23:23> Cosign ED Attending Ericature Attestation: I was immediately available in the department for consultation. Documentation has been reviewed. I agree with assessment and plan.
--- NOTE | 2018-05-21 18:19 | DI.RAD.S_ITS ---
PROCEDURE: XR HAND LT MIN 3V INDICATIONS: pain in 3/4 distal MCs, finger fx, poss re-injury TECHNIQUE: 3 views of the hand(s) acquired. [facility]/18/[facility], 19:17. [facility], HAND 3V LEFT, 08/30/2017, 13:24. FINDINGS: Bones: Comminuted fracture within the midportion of the fourth middle phalanx demonstrating improved anatomic alignment compared to prior exam. No areas of new fracture identified. Soft tissues: No suspicious soft tissue calcifications. IMPRESSION: Comminuted fourth middle phalanx fracture demonstrating improved alignment compared to prior exam. No definitive new fracture is identified. Dictated by: Sharon Wilde M.D. on 05/21/2018 at 18:39 Approved by: Sharon iWlde M.D. on 05/21/2018 at 18:40
[2018-05-21 18:49] VITALS: PULSE 66
[2018-05-21 19:40] VITALS: BP 152/80; PULSE 60; RESP 16; O2SAT 100
== END 2018-05-21 19:27 | disposition home or self-care (01) ==
PROVIDERS: Emergency Provider Internal Medicine; Family Provider Family Medicine; PCP Family Medicine
DX: S62.604A Fracture of unspecified phalanx of right ring finger, initial encounter for closed fracture (principal)
CPT/HCPCS: 29130; 73130; 99282; 99283